=== PATIENT | female | born 2000 | race Caucasian/White ===

== ENCOUNTER 2018-11-16 22:44 | Observation (INO) | payer BC ==
[2018-11-16] MEDS ORDERED: IPRATROPIUM 0.5 MG/2.5 ML NEBU INHALATION STA (22:57)
[2018-11-16] MEDS ORDERED: ALBUTEROL NEBULIZED 2.5 MG/3 ML INHALATION STA (22:57)
--- NOTE | 2018-11-16 22:58 | ED ---
SOB HPI - General Chief Complaint: Shortness of Breath Stated Complaint: SOB Time Seen by Provider: 11/16/18 22:56 Source: patient, RN notes reviewed, old records reviewed Mode of arrival: ambulatory Limitations: no limitations - History of Present Illness Initial Comments: This is a 18-year-old female to the ER for evaluation shortness a for evaluation shortness of breath. His physician patient is been struggling with for a few months now. No liver medications. Patient was seen by family doctor earlier in the day and symptoms have persisted tonight and progressively worsening with no help with breathing treatments. Patient was given steroids shot prior in the day as well as chest x-ray which from what shewas normal. Patient denies fevers. Denies pain. Denies chance of . Denies any anxiety. No other medications, patient denies drugs or alcohol MD Complaint: shortness of breath, cough, anxiety -: hour(s) Severity: moderate Severity scale (1-10): 6 Consistency: constant, intermittent Improves With: bronchodilators Worsens With: exertion, movement Context: recent URI Associated Symptoms: cough, sputum production, palpitations Treatments Prior to Arrival: none - Related Data Home Medications Medication Instructions Recorded Confirmed Albuterol Nebulized [Ventolin 2.5 mg INHALATION RT-QID PRN 11/16/18 11/16/18 Nebulized] Albuterol Sulfate [Proair Hfa] 1 - 2 puff INHALATION RT-QID PRN 11/16/18 Desog-E.estradiol/E.estradiol 1 tab PO DAILY 11/16/18 11/16/18 [Azurette 28 Day Tablet] Doxycycline Hyclate [Vibramycin] 100 mg PO BID 11/16/18 11/16/18 predniSONE See Taper PO DAILY 11/16/18 11/16/18 Allergies Allergy/AdvReac Type Severity Reaction Status Date / Time azithromycin [From Zithromax] Allergy Rash/Hives Verified 11/16/18 23:08 Review of Systems ROS Statement: Those systems with pertinent positive or pertinent negative responses have been documented in the HPI. ROS Other: All systems not noted in ROS Statement are negative. Past Medical History Past Medical History: No Reported History History of Any Multi-Drug Resistant Organisms: None Reported Past Surgical History: No Surgical Hx Reported Past Psychological History: No Psychological Hx Reported Smoking Status: Never smoker Past Alcohol Use History: Occasional Past Drug Use History: None Reported General Exam Limitations: no limitations General appearance: alert, in no apparent distress Head exam: Present: atraumatic, normocephalic, normal inspection Eye exam: Present: normal appearance, PERRL, EOMI. Absent: scleral icterus, conjunctival injection, periorbital swelling ENT exam: Present: normal exam, mucous membranes moist Neck exam: Present: normal inspection. Absent: tenderness, meningismus, lymphadenopathy Respiratory exam: Present: respiratory distress, decreased breath sounds, prolonged expiratory. Absent: wheezes, rales, rhonchi, stridor Cardiovascular Exam: Present: normal rhythm, tachycardia, normal heart sounds. Absent: systolic murmur, diastolic murmur, rubs, gallop, clicks GI/Abdominal exam: Present: soft, normal bowel sounds. Absent: distended, tenderness, guarding, rebound, rigid Extremities exam: Present: normal inspection, full ROM, normal capillary refill. Absent: tenderness, pedal edema, joint swelling, calf tenderness Back exam: Present: normal inspection Neurological exam: Present: alert, oriented X3, CN II-XII intact Psychiatric exam: Present: normal affect, normal mood Skin exam: Present: warm, dry, intact, normal color. Absent: rash Course Vital Signs 11/16/18 11/16/18 11/16/18 22:51 23:13 23:39 Temperature 99.3 F Pulse Rate 136 H 97 100 Respiratory 28 H 22 20 Rate Blood Pressure 133/88 O2 Sat by Pulse 96 Oximetry 11/17/18 11/17/18 11/17/18 00:00 01:00 01:30 Temperature Pulse Rate 147 H 126 H 135 H Respiratory 23 22 20 Rate Blood Pressure 140/87 134/78 117/88 O2 Sat by Pulse 96 99 98 Oximetry - Reevaluation(s) Reevaluation #1: Record is reviewed and noncontributory Reevaluation #2: Patient is continues to complain of chest pain shortness of breath and feels like her heart is racing and palpating in her chest. Reevaluation #3: Spoke with patient regarding normal findings, patient does not for comfortable at home as he symptoms of progressive for 3 months and she is going back to school this week and, would like to have answers to her symptoms Medical Decision Making - Medical Decision Making 18-year-old female the ER for evaluation of chest pain chest pain with cough shortness of breath, symptoms progressive 3 months. She has had waxing and waning of symptoms but recently worsening. She was seen in urgent care earlier today and symptoms progressively worsened felt the night. No help at home was in home inhalers. Patient given breathing treatment here in the ER and has remained persistently tachycardic here in the emergency room. Patient did have a CT which was negative labwork which is within normal limits. Patient will be admitted for persistent tachycardia shortness of breath and chest pain. - Lab Data Result diagrams: 11/17/18 00:00 11/17/18 00:00 Lab Results 11/17/18 11/17/18 11/17/18 Range/Units 00:00 00:00 00:00 WBC 11.4 H (4.0-11.0) k/uL RBC 4.41 (3.80-5.40) m/uL Hgb 12.5 (11.4-16.0) gm/dL Hct 39.0 (34.0-46.0) % MCV 88.4 (80.0-100.0) fL MCH 28.3 (25.0-35.0) pg MCHC 32.1 (31.0-37.0) g/dL RDW 14.1 (11.5-15.5) % Plt Count 170 (150-450) k/uL Neutrophils % 72 % Lymphocytes % 16 % Monocytes % 4 % Eosinophils % 6 % Basophils % 1 % Neutrophils # 8.2 H (1.3-7.7) k/uL Lymphocytes # 1.8 (1.0-4.8) k/uL Monocytes # 0.5 (0-1.0) k/uL Eosinophils # 0.7 (0-0.7) k/uL Basophils # 0.1 (0-0.2) k/uL PT (9.0-12.0) sec INR (<1.2) APTT (22.0-30.0) sec D-Dimer (<0.60) mg/L FEU Sodium 137 (137-145) mmol/L Potassium 3.5 (3.5-5.1) mmol/L Chloride 104 (98-107) mmol/L Carbon Dioxide 23 (22-30) mmol/L Anion Gap 10 mmol/L BUN 9 (7-17) mg/dL Creatinine 0.83 (0.52-1.04) mg/dL Est GFR (CKD-EPI)AfAm >90 (>60 ml/min/1.73 sqM) Est GFR (CKD-EPI)NonAf >90 (>60 ml/min/1.73 sqM) Glucose 133 H (74-99) mg/dL Calcium 10.1 (8.4-10.2) mg/dL Magnesium 1.6 (1.6-2.3) mg/dL Total Bilirubin 0.4 (0.2-1.3) mg/dL AST 19 (14-36) U/L ALT 23 (9-52) U/L Alkaline Phosphatase 60 (38-126) U/L Total Creatine Kinase 119 (30-135) U/L CK-MB (CK-2) 0.4 (0.0-2.4) ng/mL CK-MB (CK-2) Rel Index 0.3 Troponin I <0.012 (0.000-0.034) ng/mL NT-Pro-B Natriuret Pep pg/mL Total Protein 7.4 (6.3-8.2) g/dL Albumin 4.3 (3.5-5.0) g/dL TSH (0.465-4.680) mIU/L 11/17/18 11/17/18 11/17/18 Range/Units 00:00 00:00 00:00 WBC (4.0-11.0) k/uL RBC (3.80-5.40) m/uL Hgb (11.4-16.0) gm/dL Hct (34.0-46.0) % MCV (80.0-100.0) fL MCH (25.0-35.0) pg MCHC (31.0-37.0) g/dL RDW (11.5-15.5) % Plt Count (150-450) k/uL Neutrophils % % Lymphocytes % % Monocytes % % Eosinophils % % Basophils % % Neutrophils # (1.3-7.7) k/uL Lymphocytes # (1.0-4.8) k/uL Monocytes # (0-1.0) k/uL Eosinophils # (0-0.7) k/uL Basophils # (0-0.2) k/uL PT 9.6 (9.0-12.0) sec INR 0.9 (<1.2) APTT 24.9 (22.0-30.0) sec D-Dimer 0.61 H (<0.60) mg/L FEU Sodium (137-145) mmol/L Potassium (3.5-5.1) mmol/L Chloride (98-107) mmol/L Carbon Dioxide (22-30) mmol/L Anion Gap mmol/L BUN (7-17) mg/dL Creatinine (0.52-1.04) mg/dL Est GFR (CKD-EPI)AfAm (>60 ml/min/1.73 sqM) Est GFR (CKD-EPI)NonAf (>60 ml/min/1.73 sqM) Glucose (74-99) mg/dL Calcium (8.4-10.2) mg/dL Magnesium (1.6-2.3) mg/dL Total Bilirubin (0.2-1.3) mg/dL AST (14-36) U/L ALT (9-52) U/L Alkaline Phosphatase (38-126) U/L Total Creatine Kinase (30-135) U/L CK-MB (CK-2) (0.0-2.4) ng/mL CK-MB (CK-2) Rel Index Troponin I (0.000-0.034) ng/mL NT-Pro-B Natriuret Pep 84 pg/mL Total Protein (6.3-8.2) g/dL Albumin (3.5-5.0) g/dL TSH 2.710 (0.465-4.680) mIU/L - EKG Data -: EKG Interpreted by Me (EKG shows sinus tachycardia rate 140, CA 120, QRS 90, QTc 518) - Radiology Data Radiology results: report reviewed (CTA chest is negative for acute disease), image reviewed Disposition Clinical Impression: Tachycardia, Acute bronchitis Disposition: ADMITTED IP TO THIS HOSP Condition: Fair Is patient prescribed a controlled substance at d/c from ED?: No
[2018-11-16] MEDS ORDERED: SODIUM CHLORIDE 0.9% 1,000 ML IV STA ×2 (23:22)
[2018-11-16] MEDS ORDERED: SODIUM CHLORIDE 0.9% 500 ML 500 ML IV STA (23:22)
[2018-11-17 00:07] LABS: Basophils # (A) 0.1 k/uL (0-0.2); Basophils % (A) 1 %; Eosinophils # (A) 0.7 k/uL (0-0.7); Eosinophils % (A) 6 %; HGB 12.5 gm/dL (11.4-16.0); Lymphocytes # (A) 1.8 k/uL (1.0-4.8); Lymphocytes % (A) 16 %; MCH 28.3 pg (25.0-35.0); MCHC 32.1 g/dL (31.0-37.0); MCV 88.4 fL (80.0-100.0); Monocytes # (A) 0.5 k/uL (0-1.0); Monocytes % (A) 4 %; Neutrophils # (A) 8.2 k/uL (1.3-7.7); Neutrophils % (A) 72 %; Platelet Count 170 k/uL (150-450); RBC 4.41 m/uL (3.80-5.40); RDW 14.1 % (11.5-15.5); WBC 11.4 k/uL (4.0-11.0)
[2018-11-17 00:17] LABS: ALT 23 U/L (9-52); AST 19 U/L (14-36); Albumin 4.3 g/dL (3.5-5.0); Alkaline Phosphatase 60 U/L (38-126); Anion Gap 10 mmol/L; Blood Urea Nitrogen 9 mg/dL (7-17); Calcium 10.1 mg/dL (8.4-10.2); Carbon Dioxide 23 mmol/L (22-30); Chloride 104 mmol/L (98-107); Glucose 133 mg/dL (74-99); Magnesium 1.6 mg/dL (1.6-2.3); Potassium 3.5 mmol/L (3.5-5.1); Sodium 137 mmol/L (137-145); Total Bilirubin 0.4 mg/dL (0.2-1.3); Total Protein 7.4 g/dL (6.3-8.2)
[2018-11-17 00:28] LABS: Creatine Kinase 119 U/L (30-135)
[2018-11-17] MEDS ORDERED: SODIUM CHLORIDE 0.9% 500 ML 500 ML IV STA (00:36)
[2018-11-17 00:41] LABS: Creatine Kinase MB 0.4 ng/mL (0.0-2.4); INR 0.9 (<1.2); Partial Thromboplastin Time 24.9 sec (22.0-30.0); Prothrombin Time 9.6 sec (9.0-12.0); Troponin I <0.012 ng/mL (0.000-0.034)
[2018-11-17 00:48] LABS: D-Dimer 0.61 mg/L FEU (<0.60)
--- NOTE | 2018-11-17 00:58 | CT ---
EXAMINATION TYPE: CT angio chest DATE OF EXAM: 11/17/2018 12:37 AM COMPARISON: None HISTORY: R/O PE, cough, congestion CT DLP: 217.80 mGycm Automated exposure control for dose reduction was used. CONTRAST: CTA scan of the thorax is performed with IV Contrast, patient injected with 60 mL of Isovue 370, pulm onary embolism protocol. . FINDINGS: There are 3-D post processed images. The lungs are clear of infiltrate. There is no pleural effusion. Heart size is normal. There is no pe ricardial effusion. There is no mediastinal adenopathy. There is a 1.5 cm right bronchial lymph node. There is normal contrast opacification of the pulmonary arteries. There are no filling defects. There is normal contrast opacification of the thoracic aorta. There is no evidence of aneurysm or dissecti on. Bony thorax appears intact. IMPRESSION: NO EVIDENCE OF PULMONARY EMBOLISM. SINGLE ENLARGED RIGHT BRONCHIAL LYMPH NODE.
[2018-11-17 02:14] VITALS: BMI 22.6
[2018-11-17] MEDS ORDERED: guaiFENesin SYRUP 100MG/5ML 200 MG/10 ML CUP PO PRN (02:21)
[2018-11-17] MEDS ORDERED: MONTELUKAST 10 MG TAB PO STA (02:21)
[2018-11-17] MEDS ORDERED: IPRATROPIUM 0.5 MG/2.5 ML NEBU INHALATION PRN (02:33)
--- NOTE | 2018-11-17 02:36 | P.HPIM ---
History of Present Illness H&P Date: 11/17/18 The patient is a 18 yo F with a PMH of recently diagnosed asthma (started on Albuerol inhaler 1 month ago) presented to the ED for persistent non-productive cough, wheezing, and pleuritic chest pain of 3 months duration. The patient notes that her symptoms were initially mild and then gradually progressed. For the past 1 month, she noted nightly awakenings requiring albuterol use along with 2-3x/daily uses. She was following with her PCP who had given her a steroid taper 2 weeks ago which provided significant relief for a few days with subsequent relapse of her symptoms. She notes that the chest pain is brought on with coughing or with movements involving her chest. She denied any fever, chills, palpitations, recent travel, sick contacts, LE swelling, hemoptysis, abnormal rashes, nausea, vomiting, abdominal pain, diarrhea, or constipation. The patient has had a dog at home for past 5 years and the house has multiple carpets. There is no family history of asthma. The patient is a never-smoker and is a full-time college student. In the ED, the patient underwent a comprehensive workup. WBC was 11.4 with 6% eosinophils. D-dimer was 0.61, Troponin < 0.012, BNP 84, and TSH 2.710. Chest CTA revealed a single enlarged LN but no evidence of PE. The patient was noted to be tachycardic with EKG showing sinus tachycardia at 148 bpm. Review of Systems Pertinent positives and negatives as discussed in HPI, a complete review of systems was performed and all other systems are negative. Past Medical History Past Medical History: No Reported History History of Any Multi-Drug Resistant Organisms: None Reported Past Surgical History: No Surgical Hx Reported Past Psychological History: No Psychological Hx Reported Smoking Status: Never smoker Past Alcohol Use History: Occasional Past Drug Use History: None Reported Medications and Allergies Home Medications Medication Instructions Recorded Confirmed Type Albuterol Nebulized [Ventolin 2.5 mg INHALATION RT-QID PRN 11/16/18 11/16/18 History Nebulized] Albuterol Sulfate [Proair Hfa] 1 - 2 puff INHALATION RT-QID PRN 11/16/18 History Desog-E.estradiol/E.estradiol 1 tab PO DAILY 11/16/18 11/16/18 History [Azurette 28 Day Tablet] Doxycycline Hyclate [Vibramycin] 100 mg PO BID 11/16/18 11/16/18 History predniSONE See Taper PO DAILY 11/16/18 11/16/18 History Allergies Allergy/AdvReac Type Severity Reaction Status Date / Time azithromycin [From Zithromax] Allergy Rash/Hives Verified 11/16/18 23:08 Physical Exam Vitals: Vital Signs Temp Pulse Pulse Resp BP BP Pulse Ox 11/17/18 02:05 100.4 F H 131 H 16 134/75 100 11/17/18 01:30 135 H 20 117/88 98 11/17/18 01:00 126 H 22 134/78 99 11/17/18 00:00 147 H 23 140/87 96 11/16/18 23:39 100 20 11/16/18 23:13 97 22 11/16/18 22:51 99.3 F 136 H 28 H 133/88 96 Intake and Output 11/16/18 11/16/18 11/17/18 14:59 22:59 06:59 Other: Weight 68.039 kg General: [non toxic], [no distress], [appears at stated age], [normal weight] Derm: [no unusual rashes/lesions] [no unusual ecchymoses], [warm], [dry] Head: [atraumatic], [normocephalic], [symmetric] Eyes: [EOMI], [no lid lag], [anicteric sclera], [pupils equal round reactive to light] ENT: [Nose and ears atraumatic], [no thrush], [no pharyngeal erythema] Neck: [No thyromegaly], [no cervical lymphadenopathy], [trachea midline], [ supple] Mouth: [no lip lesion], [mucus membranes moist] Cardiovascular: [S1S2 reg], tachycardic, [no murmur], [positive posterior tibial pulse bilateral], [no edema], [capillary refill less than 2 seconds] Lungs: [Poor air entry with mild wheezing diffusely], [no rhonchi, no rales] , [ no accessory muscle use] Abdominal: [soft], [ nontender to palpation], [no guarding], [no appreciable organomegaly], [normal bowel sounds] Ext: [no gross muscle atrophy], [muscle strength 5 out of 5 in all 4 extremities grossly], [no contractures], Neuro: [ CN II-XI grossly intact], [light touch intact all 4 extremities], [ finger to nose within normal limits], Psych: [Alert], [oriented], [appropriate affect] Results CBC & Chem 7: 11/17/18 00:00 11/17/18 00:00 Labs: Abnormal Lab Results - Last 24 Hours (Table) 11/17/18 11/17/18 11/17/18 Range/Units 00:00 00:00 00:00 WBC 11.4 H (4.0-11.0) k/uL Neutrophils # 8.2 H (1.3-7.7) k/uL D-Dimer 0.61 H (<0.60) mg/L FEU Glucose 133 H (74-99) mg/dL Assessment and Plan Plan: Acute asthma exacerbation, cough-variant -Will start patient on Solu-medrol with Ipratropium. Pharmacy doesn't carry Xopenex (Discussed with pharmacist) -Start Singulair -Will give dose of Magnesium Sulfate -Robitussin -Pulmonary consult -Daily peak flows -Supplemental oxygen -Chest pain likely due to excessive coughing Tachycardia -Likely secondary to repeated use of Albuterol -Will administer ipratropium for now -Telemetry monitoring Enlarged R bronchial LN -Will need repeat CT as outpatient to confirm resolution. Likely reactive. DVT//GI prophylaxis - Lovenox - Protonix The patient is admitted with an anticipated stay less than 2 midnight stay for evaluation of acute asthma exacerbation Surrogate decision-maker: Mother CODE STATUS:Full-code Discussed with: Patient, mother Anticipated discharge date: 11/19/[address]: Home A total of 60 minutes was spent on the care of this complex patient more than 50 % of the time was spent in counseling and care coordination.
[2018-11-17] MEDS: methylPREDNISolone SOD SUCCI 125 MG/2 ML VIAL IV SCH ×2 (02:47→06:31)
[2018-11-17] MEDS: MAGNESIUM SULFATE-D5W PMX 1 GM in DEXTROSE/WATER 1 100ML.BAG IVPB SCH ×2 (03:08→04:44)
[2018-11-17 04:00] LABS: ABG Base Excess -0.9 mmol/L; ABG HCO3 23 mmol/L (21-25); ABG PCO2 34 mmHg (35-45); ABG PH 7.43 (7.35-7.45); ABG PO2 98 mmHg (83-108); ABG TCO2 24 mmol/L (19-24)
[2018-11-17 07:59] LABS: Creatine Kinase 121 U/L (30-135)
[2018-11-17 08:13] LABS: Creatine Kinase MB 0.4 ng/mL (0.0-2.4); Troponin I <0.012 ng/mL (0.000-0.034)
[2018-11-17] MEDS: ENOXAPARIN 40 MG/0.4 ML SYRINGE SQ SCH (11:16)
[2018-11-17] MEDS: VERAPAMIL 40 MG TAB PO SCH ×3 (11:16→20:16)
[2018-11-17] MEDS: PANTOPRAZOLE 40 MG TABLET PO SCH (11:17)
--- NOTE | 2018-11-17 11:18 | P.CNPUL ---
History of Present Illness Consult date: 11/17/18 Requesting physician: Zaheer White Reason for consult: asthma Chief complaint: Shortness of breath cough and wheezing History of present illness: This is a 18-year-old female presented to the ER yesterday with 3 month history of shortness of breath, cough, wheezing, found her primary care physician at one point, and she was placed on albuterol, she was also placed on a course of the Medrol Dosepak. Her symptoms have dramatically improved at the time she was given this treatment. However recently the patient has been getting more symptoms of cough wheezing shortness of breath chest tightness, and her symptoms had been getting progressively worse. Patient never had asthma as a child, no family history of bronchial asthma. She denies any significant exposure recently. She always had a Pet/dog for the last 5 years, and she never demonstrated any ALLERGY to dogs in the past. No recent change in soap, or perfume, or carpeting denies being under stress. Considering the worsening symptoms, patient was seen in the ER, treated with albuterol Atrovent, Solu- Medrol, Singulair, and apparently while in the ER she developed sinus tachycardia, cardiology was consulted, and she was placed on Isoptin. Presently during my evaluation, seems to be doing better, breathing easier. CT angiogram of the chest showed no evidence of pulmonary embolism, however it did show a 1.5 cm bronchial lymph node felt to be reactive unless proven otherwise. Patient denies any symptoms of GERD. Denies any symptoms of postnasal drip, she does have occasional symptoms of ALLERGIC rhinitis especially in the last 3 months. Review of Systems 14 point review of systems were obtained, please refer to pertinent positives in HPI, otherwise remaining systems are negative. Past Medical History Past Medical History: No Reported History History of Any Multi-Drug Resistant Organisms: None Reported Past Surgical History: No Surgical Hx Reported Past Anesthesia/Blood Transfusion Reactions: No Reported Reaction Past Psychological History: No Psychological Hx Reported Smoking Status: Never smoker Past Alcohol Use History: Occasional Past Drug Use History: None Reported Medications and Allergies Home Medications Medication Instructions Recorded Confirmed Type Albuterol Nebulized [Ventolin 2.5 mg INHALATION RT-QID PRN 11/16/18 11/16/18 History Nebulized] Albuterol Sulfate [Proair Hfa] 1 - 2 puff INHALATION RT-QID PRN 11/16/18 History Desog-E.estradiol/E.estradiol 1 tab PO DAILY 11/16/18 11/16/18 History [Azurette 28 Day Tablet] Doxycycline Hyclate [Vibramycin] 100 mg PO BID 11/16/18 11/16/18 History predniSONE See Taper PO DAILY 11/16/18 11/16/18 History Allergies Allergy/AdvReac Type Severity Reaction Status Date / Time azithromycin [From Zithromax] Allergy Rash/Hives Verified 11/16/18 23:08 Physical Exam Vitals: Vital Signs Temp Pulse Pulse Pulse Resp BP BP 11/17/18 09:23 104 H 11/17/18 09:11 100 11/17/18 07:25 98.1 F 95 16 109/69 11/17/18 02:57 135 H 20 11/17/18 02:41 122/77 11/17/18 02:05 100.4 F H 131 H 18 134/75 11/17/18 01:30 135 H 20 117/88 11/17/18 01:00 126 H 22 134/78 11/17/18 00:00 147 H 23 140/87 11/16/18 23:39 100 20 11/16/18 23:13 97 22 11/16/18 22:51 99.3 F 136 H 28 H 133/88 Pulse Ox 11/17/18 09:23 11/17/18 09:11 11/17/18 07:25 98 11/17/18 02:57 11/17/18 02:41 11/17/18 02:05 100 11/17/18 01:30 98 11/17/18 01:00 99 11/17/18 00:00 96 11/16/18 23:39 11/16/18 23:13 11/16/18 22:51 96 Intake and Output 11/16/18 11/17/18 11/17/18 22:59 06:59 14:59 Other: Weight 68.039 kg 69.5 kg Physical Exam: Revealed a 18-year-old female, in no distress. Head: Atraumatic, normocephalic. HEENT:[Neck is supple.] [No neck masses.] [No thyromegaly.] [No JVD.] Chest: Diminished breath sound bilaterally., no crackles, minimal wheezing on forced expiratory maneuver only. Cardiac Exam: [Normal S1 and S2, no S3 gallop, no murmur.] Abdomen: [Soft, nontender, no megaly, no rebound, no guarding, normal bowel sounds.] Extremities: [No clubbing, no edema, no cyanosis.] Neurological Exam: [No focal neurologic deficit. Psychiatric: Normal mood, affect and mental status examination. Skin: No rashes.] Results - Laboratory Findings CBC and BMP: 11/17/18 00:00 11/17/18 00:00 ABG ABG pH 7.43 (7.35-7.45) 11/17/18 03:45 ABG pCO2 34 mmHg (35-45) L 11/17/18 03:45 ABG pO2 98 mmHg (83-108) 11/17/18 03:45 ABG O2 Saturation 98.0 % (94-97) H 11/17/18 03:45 PT/INR, D-dimer PT 9.6 sec (9.0-12.0) 11/17/18 00:00 INR 0.9 (<1.2) 11/17/18 00:00 D-Dimer 0.61 mg/L FEU (<0.60) H 11/17/18 00:00 Abnormal lab findings: Abnormal Labs 11/17/18 11/17/18 11/17/18 00:00 00:00 00:00 WBC 11.4 H Neutrophils # 8.2 H D-Dimer 0.61 H ABG pCO2 ABG O2 Saturation Glucose 133 H 11/17/18 03:45 WBC Neutrophils # D-Dimer ABG pCO2 34 L ABG O2 Saturation 98.0 H Glucose - Diagnostic Findings CT scan - chest: image reviewed (As noted in HPI.) Assessment and Plan Assessment: Impression: Acute exacerbation of mild persistent asthma Acute tracheobronchitis Sinus tachycardia mostly induced by medication and anxiety. No evidence of thromboembolic disease on CT angiogram of the chest. Ideally speaking would be best to use Xopenex, however is not available on our formulary. This is something to be used possibly upon discharge. This is being addressed by cardiology, apparently Isoptin was initiated Reactive lymph node as noted on CT of the chest, would recommend repeat CT of the chest in 6 months. Recommendation: Fully agree with the present treatment plan, will recommend placing the patient back on albuterol HFA 2 puffs 4 times a day when necessary, Singulair, Solu-Medrol and transitioned that tomorrow to prednisone 30 mg and tapered over 2 weeks. Consider giving the patient a prescription for Xopenex upon discharge tomorrow. Would add Pulmicort updrafts twice a day. We'll continue to follow. Consider discharge planning in the next 24 hours. Patient should have follow-up with me in my office in one week post discharge. Time with Patient: Greater than 30
--- NOTE | 2018-11-17 11:41 | P.CRDCN ---
History of Present Illness History of present illness: This is a pleasant 18-year-old female past medical history significant for asthma, which was newly diagnosed over the last 3 months. She denies history of coronary artery disease, hypertension, dyslipidemia or diabetes mellitus. Mother and aunt are in the room as well. She states she has been feeling short of breath and coughing for the previous 3 months. She has been started on albuterol at home. Over the last few days her symptoms have become increasingly bothersome with no improvement from breathing treatments. She also describes a pain in her chest worse with cough, deep breathing and movement of her torso. EKG reveals sinus tachycardia heart rate 148 on admission, right bundle branch block pattern right axis deviation. There is no old EKG for comparison. Telemetry tracings reveal sinus tachycardia with no acute arrhythmia. CT angio chest negative for PE with a single enlarged her bronchial lymph node noted. Laboratory data reviewed, WBC 11.4, hemoglobin 12.5, platelets 170, d-dimer 0.61 , sodium 137, potassium 3.5, creatinine 0.83, magnesium 1.6, cardiac enzymes negative 2, NT proBNP 84, TSH 2.71. She takes no daily cardiac medications No old cardiac diagnostic testing to review. At the time of my exam: CONSTITUTIONAL: Denies fever. Denies chills. EYES: Denies blurred vision. Denies vision changes. Denies eye pain. EARS, NOSE, MOUTH & THROAT: Denies headache. Denies sore throat. Denies ear pain. CARDIOVASCULAR: Denies chest pain. Complains of shortness of breath. Denies orthopnea. Denies PND. Denies palpitations. RESPIRATORY: Complains of cough. GASTROINTESTINAL: Denies abdominal pain. Denies diarrhea. Denies constipation. Denies nausea. Denies vomiting. MUSCULOSKELETAL: Denies myalgias. INTEGUMENTARY: Denies pruitis. Denies rash. NEUROLOGIC: Denies numbness. Denies tingling. Denies weakness. PSYCHIATRIC: Denies anxiety. Denies depression. ENDOCRINE: Denies fatigue. Denies weight change. Denies polydipsia. Denies polyurina. GENITOURINARY: Denies burning, hematuria or urgency with micturation. HEMATOLOGIC: Denies history of anemia. Denies bleeding. Blood pressure 109/69 heart rate 104 afebrile maintaining oxygen saturation on nasal cannula GENERAL: This is a 18-year-old female in no apparent distress at the time of my examination. HEENT: Head is atraumatic, normocephalic. Pupils are equal, round. Sclerae anicteric. Conjunctivae are clear. Mucous membranes of the mouth are moist. Neck is supple. There is no jugular venous distention. No carotid bruit is heard. LUNGS: Expiratory wheeze throughout, no rales or rhonchi. No chest wall tenderness is noted on palpation or with deep breathing. HEART: Regular rate and rhythm without murmurs, rubs or gallops. S1 and S2 heard. ABDOMEN: Soft, nontender. Bowel sounds are heard. No organomegaly noted. EXTREMITIES: No evidence of peripheral edema and no calf tenderness noted. VASCULAR: Radial and dorsalis pedis pulses palpated, no evidence of clubbing. NEUROLOGIC: Patient is awake, alert and oriented x3. ASSESSMENT Sinus tachycardia Acute exacerbation of asthma Pleuritic chest pain. PLAN Obtain 2-D echocardiogram and Doppler study to assess cardiac structure and function. Start the patient on verapamil 40 mg 3 times a day for heart rate control. Ongoing medical management of asthma. Thank you kindly for this consultation. Nurse Practitioner note has been reviewed, I agree with a documented findings and plan of care. Patient was seen and examined. Past Medical History Past Medical History: No Reported History History of Any Multi-Drug Resistant Organisms: None Reported Past Surgical History: No Surgical Hx Reported Past Anesthesia/Blood Transfusion Reactions: No Reported Reaction Past Psychological History: No Psychological Hx Reported Smoking Status: Never smoker Past Alcohol Use History: Occasional Past Drug Use History: None Reported Medications and Allergies Home Medications Medication Instructions Recorded Confirmed Type Albuterol Nebulized [Ventolin 2.5 mg INHALATION RT-QID PRN 11/16/18 11/16/18 History Nebulized] Albuterol Sulfate [Proair Hfa] 1 - 2 puff INHALATION RT-QID PRN 11/16/18 History Desog-E.estradiol/E.estradiol 1 tab PO DAILY 11/16/18 11/16/18 History [Azurette 28 Day Tablet] Doxycycline Hyclate [Vibramycin] 100 mg PO BID 11/16/18 11/16/18 History predniSONE See Taper PO DAILY 11/16/18 11/16/18 History Allergies Allergy/AdvReac Type Severity Reaction Status Date / Time azithromycin [From Zithromax] Allergy Rash/Hives Verified 11/16/18 23:08 Physical Exam Vitals: Vital Signs Temp Pulse Pulse Pulse Resp BP BP 11/17/18 09:23 104 H 11/17/18 09:11 100 11/17/18 07:25 98.1 F 95 16 109/69 11/17/18 02:57 135 H 20 11/17/18 02:41 122/77 11/17/18 02:05 100.4 F H 131 H 18 134/75 11/17/18 01:30 135 H 20 117/88 11/17/18 01:00 126 H 22 134/78 11/17/18 00:00 147 H 23 140/87 11/16/18 23:39 100 20 11/16/18 23:13 97 22 11/16/18 22:51 99.3 F 136 H 28 H 133/88 Pulse Ox 11/17/18 09:23 11/17/18 09:11 11/17/18 07:25 98 11/17/18 02:57 11/17/18 02:41 11/17/18 02:05 100 11/17/18 01:30 98 11/17/18 01:00 99 11/17/18 00:00 96 11/16/18 23:39 11/16/18 23:13 11/16/18 22:51 96 Intake and Output 11/16/18 11/17/18 11/17/18 22:59 06:59 14:59 Other: Weight 68.039 kg 69.5 kg Results 11/17/18 00:00 11/17/18 00:00 Cardiac Enzymes 11/17/18 11/17/18 11/17/18 Range/Units 00:00 00:00 06:59 AST 19 (14-36) U/L CK-MB (CK-2) 0.4 0.4 (0.0-2.4) ng/mL Troponin I <0.012 <0.012 (0.000-0.034) ng/mL Coagulation 11/17/18 Range/Units 00:00 PT 9.6 (9.0-12.0) sec APTT 24.9 (22.0-30.0) sec CBC 11/17/18 Range/Units 00:00 WBC 11.4 H (4.0-11.0) k/uL RBC 4.41 (3.80-5.40) m/uL Hgb 12.5 (11.4-16.0) gm/dL Hct 39.0 (34.0-46.0) % Plt Count 170 (150-450) k/uL Comprehensive Metabolic Panel 11/17/18 Range/Units 00:00 Sodium 137 (137-145) mmol/L Potassium 3.5 (3.5-5.1) mmol/L Chloride 104 (98-107) mmol/L Carbon Dioxide 23 (22-30) mmol/L BUN 9 (7-17) mg/dL Creatinine 0.83 (0.52-1.04) mg/dL Glucose 133 H (74-99) mg/dL Calcium 10.1 (8.4-10.2) mg/dL AST 19 (14-36) U/L ALT 23 (9-52) U/L Alkaline Phosphatase 60 (38-126) U/L Total Protein 7.4 (6.3-8.2) g/dL Albumin 4.3 (3.5-5.0) g/dL Current Medications Generic Name Dose Route Start Last Admin Trade Name Freq PRN Reason Stop Dose Admin Albuterol Sulfate 2.5 mg 11/17/18 10:45 Ventolin Nebulized INHALATION RT-QID PRN Shortness Of Breath Or Wheezing Aspirin 325 mg 11/18/18 09:00 Aspirin PO DAILY [facility] Enoxaparin Sodium 40 mg 11/17/18 09:00 Lovenox SQ DAILY [facility] Guaifenesin 200 mg 11/17/18 02:21 Robitussin PO Q6H PRN Cough Methylprednisolone Sodium Succinate 40 mg 11/17/18 16:00 Solu-Medrol IV Q8HR IVET Montelukast Sodium 10 mg 11/17/18 21:00 Singulair PO HS IVET Pantoprazole Sodium 40 mg 11/17/18 07:30 Protonix PO AC-BRKFST [facility] Verapamil HCl 40 mg 11/17/18 10:15 Isoptin PO TID IVET Intake and Output 11/16/18 11/17/18 11/17/18 22:59 06:59 14:59 Other: Weight 68.039 kg 69.5 kg 11/17/18 00:00 11/17/18 00:00
[2018-11-17 11:44] LABS: Creatine Kinase 134 U/L (30-135)
[2018-11-17 11:57] LABS: Creatine Kinase MB 0.5 ng/mL (0.0-2.4); Troponin I <0.012 ng/mL (0.000-0.034)
--- NOTE | 2018-11-17 11:57 | ECHOF ---
Referral Reason:cp MEASUREMENTS -------- HEIGHT: 175.3 cm WEIGHT: 69.4 kg BP: 109/69 RVIDd: 2.2 cm (< 3.3) IVSd: 0.8 cm (0.6 - 1.1) LVIDd: 4.0 cm (3.9 - 5.3) LVPWd: 0.9 cm (0.6 - 1.1) IVSs: 1.4 cm LVIDs: 2.5 cm LVPWs: 1.1 cm LA Diam: 2.4 cm (2.7 - 3.8) LAESV Index (A-L): 18.07 ml/m Ao Diam: 2.9 cm (2.0 - 3.7) AV Cusp: 2.3 cm (1.5 - 2.6) EPSS: 0.4 cm MV E Hernando: 0.81 m/s MV DecT: 118 ms MV A Hernando: 1.01 m/s MV E/A Ratio: 0.81 RAP: 5.00 mmHg RVSP: 22.90 mmHg MV EF SLOPE: 127.33 mm/s (70 - 150) MV EXCURSION: 1.97 cm (> 18.000) FINDINGS -------- Sinus rhythm. This was a technically good study. The left ventricular size is normal. Left ventricular wall thickness is normal. Overall left vent ricular systolic function is normal with, an EF between 60 - 65 %. The right ventricle is normal in size. Normal LA size by volume 22+/-6 ml/m2. The right atrium is normal in size. The aortic valve is trileaflet and appears structurally normal. The mitral valve leaflets are mildly thickened. There is trace mitral regurgitation. MVL looks re dundant Mild tricuspid regurgitation present. Right ventricular systolic pressure is normal at < 35 mmHg. Trace/mild (physiologic) pulmonic regurgitation. The aortic root size is normal. Normal inferior vena cava with normal inspiratory collapse consistent with estimated right atrial pre ssure of 5 mmHg. There is no pericardial effusion. CONCLUSIONS -------- 1. Sinus rhythm. 2. This was a technically good study. 3. The left ventricular size is normal. 4. Left ventricular wall thickness is normal. 5. Overall left ventricular systolic function is normal with, an EF between 60 - 65 %. 6. The right ventricle is normal in size. 7. Normal LA size by volume 22+/-6 ml/m2. 8. The right atrium is normal in size. 9. The aortic valve is trileaflet and appears structurally normal. 10. The mitral valve leaflets are mildly thickened. 11. There is trace mitral regurgitation. 12. MVL looks redundant 13. Mild tricuspid regurgitation present. 14. Right ventricular systolic pressure is normal at < 35 mmHg. 15. Trace/mild (physiologic) pulmonic regurgitation. 16. The aortic root size is normal. 17. Normal inferior vena cava with normal inspiratory collapse consistent with estimated right atrial pressure of 5 mmHg. 18. There is no pericardial effusion. MENTAL HEALTH DIRECTOR: YASH Wheeler
[2018-11-17] MEDS: ALBUTEROL NEBULIZED 2.5 MG/3 ML INHALATION PRN ×2 (16:18→19:44)
[2018-11-17] MEDS: methylPREDNISolone SOD SUCCI 40 MG/ML 1 ML VIAL IV SCH ×2 (16:44→22:53)
--- NOTE | 2018-11-17 18:17 | P.PN ---
Subjective Patient was admitted with shortness of breath wheezing coughing. She denies any URI like symptoms. His any fever chills. Denies any sick contacts. Denies any new pets or any exposures. She has never been diagnosed with asthma and does not have any history of asthma or ALLERGIES in the family. She states that for the last 2-3 months she's been having dry cough and occasionally waking up at night with some shortness of breath. States that mouth breathing treatment and steroids feeling much better. REVIEW OF SYSTEMS: CONSTITUTIONAL: No fever or chills HEENT: No changes in vision or voice CARDIOVASCULAR: no chest pain or abnormal heart beats, or any swelling in ankles or feet. RESPIRATORY: As per HPI GASTROINTESTINAL: No abdominal pain, no nausea no vomiting no constipation or diarrhea GENITOURINARY: no any urinary urgency, frequency or burning, and there has been no blood in her urine. no flank pain. MUSCULOSKELETAL: She notes full range of motion of all her joints without pain or swelling. NEUROLOGICAL: , no headache. no vision changes, or fainting. No numbness or tingling. Objective - Vital Signs Vital signs: Vital Signs Temp 98.6 F 11/17/18 15:42 Pulse 100 11/17/18 16:29 Resp 18 11/17/18 15:42 BP 115/59 11/17/18 15:42 Pulse Ox 97 11/17/18 15:42 Intake & Output 11/16/18 11/17/18 11/17/18 18:59 06:59 18:59 Intake Total 240 Balance 240 Weight 69.5 kg Intake: Oral 240 - Exam Vital Signs: I have reviewed the vital signs. GENERAL: Well-nourished, Well-developed , no apparent distress, cooperative Eyes: PERRL, extraoculry movements intact, clear conjunctiva Head: : Atraumatic external nose and ears, oropharyngeal mucosa is moist without lesions or exudates Neck: Symmetric, trachea midline, No thyromegaly, no masses or neck vain pulsation, no neck rigidity CVS: +S1/S2, No murmurs or gallops. Peripheral pulses 2+ and equal in all extremities. RESP: Unlabored respiratory effort. Expiratory wheezing and rhonchi Abdomen: Bowel sounds present in all 4 quadrants, Soft to palpation, Nontender/ Nondistended, No hepatosplenomegaly, no hernias or masses, no CVA tnderness Musculoskeletal: Extremities w/o deformity, No cyanosis or clubbing, no joint swelling Skin: Warm, Dry. No rashes or lesions Neuro: wrong address clerk II-XII grossly intact, motor strenght 5/5 i upper and lower extremities, no clonus, patellar DTRs 2+ and sympetrical Psych: Awake, Alert, & Oriented (AAO) x3 Appropriate mood and affect - Labs CBC & Chem 7: 11/17/18 00:00 11/17/18 00:00 Labs: Abnormal Lab Results - Last 24 Hours (Table) 11/17/18 11/17/18 11/17/18 Range/Units 00:00 00:00 00:00 WBC 11.4 H (4.0-11.0) k/uL Neutrophils # 8.2 H (1.3-7.7) k/uL D-Dimer 0.61 H (<0.60) mg/L FEU ABG pCO2 (35-45) mmHg ABG O2 Saturation (94-97) % Glucose 133 H (74-99) mg/dL 11/17/18 Range/Units 03:45 WBC (4.0-11.0) k/uL Neutrophils # (1.3-7.7) k/uL D-Dimer (<0.60) mg/L FEU ABG pCO2 34 L (35-45) mmHg ABG O2 Saturation 98.0 H (94-97) % Glucose (74-99) mg/dL Assessment and Plan Assessment: 1. Acute exacerbation of asthma Systemic steroids Nebulizers Pulmonary recommended discharging Pulmicort Recommended lung function test and ALLERGY testing on outpatient basis 2. Inappropriate sinus tachycardia Likely related to asthma Currently much improved Cardiology started verapamil We'll reevaluate in the morning Expected discharge in a.m. if continues current trajectory of improvement
[2018-11-17] MEDS: BUDESONIDE 1 MG/2 ML NEBU INHALATION SCH (19:43)
[2018-11-17 20:02] LABS: Urine Alcohol Negative (Negative); Urine Barbiturate Negative (Negative); Urine Cocaine Negative (Negative); Urine Methadone Negative (Negative); Urine Opiates Negative (Negative); Urine Phencyclidine Negative (Negative)
[2018-11-17] MEDS ORDERED: MONTELUKAST 10 MG TAB PO SCH (21:00)
[2018-11-17 23:26] LABS: Cholesterol 187 mg/dL (<200); HDL Cholesterol 93 mg/dL (40-60); LDL Cholesterol,Calculated 68 mg/dL (0-99); Triglycerides 130 mg/dL (<150)
[2018-11-18 04:32] VITALS: RESP 16
[2018-11-18] MEDS: ALBUTEROL NEBULIZED 2.5 MG/3 ML INHALATION PRN (07:24)
[2018-11-18] MEDS: BUDESONIDE 1 MG/2 ML NEBU INHALATION SCH (07:24)
[2018-11-18 08:19] VITALS: BP 122/62; TEMP 97.7
[2018-11-18] MEDS: VERAPAMIL 40 MG TAB PO SCH (08:20)
[2018-11-18] MEDS: PANTOPRAZOLE 40 MG TABLET PO SCH (08:20)
[2018-11-18] MEDS: ENOXAPARIN 40 MG/0.4 ML SYRINGE SQ SCH (08:20)
[2018-11-18] MEDS: methylPREDNISolone SOD SUCCI 40 MG/ML 1 ML VIAL IV SCH (08:21)
[2018-11-18] MEDS ORDERED: ASPIRIN 325 MG TAB PO SCH (09:00)
--- NOTE | 2018-11-18 09:55 | P.DS ---
Providers Date of admission: 11/17/18 01:10 Attending physician: Zaheer White MD Consults: 11/17/18 01:10 Consult Physician Routine Consulting Provider: Josue Capone Consult Reason/Comments: tachycardia Do you want consulting provider notified?: Yes 11/17/18 02:21 Consult Physician Urgent Consulting Provider: Sobia Cash Consult Reason/Comments: Asthma Do you want consulting provider notified?: Yes Primary care physician: Mary Ann Loza [facility] Course: Date of admission 11/17/2018 Date of discharge is 11/18/2018 Chief complaint: Shortness of breath Admission diagnosis: Shortness of breath and tachycardia Discharge diagnosis: 1. Acute asthma exacerbation 2. Acute bronchitis 3. Sinus tachycardia with Consultants: 1. Pulmonary service 2. Cardiology Procedures none. 1. Echocardiogram: Revealing normal left ejection fraction no diastolic dysfunction and no valvular abnormalities 2. CTA chest: No pulmonary embolism no infiltrates no lymphadenopathy Hospital course this is a 8-year-old female who presented with complaint of cough and shortness of breath and subjective feeling of chest wheezing. She describes cough and nighttime awakening with cough and shortness of breath for last few weeks. Shortness of breath progressed over the few days prior to the admission. She denied any chest pain nausea vomiting leg swelling or orthopnea. Denies fever or chills or URI symptoms. Cough was nonproductive She was found to have expiratory wheezing bilaterally. Chest x-ray was nonacute without infiltrates. She was afebrile without white blood cell count. In emergency department she was initially given breathing treatment and steroids and her condition started improving. But it was noted that she had been having tachycardia in the range of 140 up to 180. EKG showed sinus tachycardia. Patient was admitted for further observation and evaluation. Patient was evaluated by above consultants. She was initially started on steroids and breathing treatments. She was started on verapamil by cardiology. Echocardiogram was unremarkable and CTA chest was unremarkable. With the above-mentioned treatment her condition improved. On date of discharge her heart rate was within normal limits. She was feeling much better without shortness of breath cough improved. Her lungs were clear without any wheezing. She was cleared by cardiology and pulmonary services for discharge and pulmonary service provided prescription for her inhalers. REVIEW OF SYSTEMS: CONSTITUTIONAL: No fever or chills HEENT: No changes in vision or voice CARDIOVASCULAR: no chest pain or abnormal heart beats, or any swelling in ankles or feet. RESPIRATORY: No wheezing or coughing. GASTROINTESTINAL: No abdominal pain, no nausea no vomiting no constipation or diarrhea GENITOURINARY: no any urinary urgency, frequency or burning, and there has been no blood in her urine. no flank pain. MUSCULOSKELETAL: She notes full range of motion of all her joints without pain or swelling. NEUROLOGICAL: , no headache. no vision changes, or fainting. No numbness or tingling. Vital Signs: I have reviewed the vital signs. GENERAL: Well-nourished, Well-developed , no apparent distress, cooperative Eyes: PERRL, extraoculry movements intact, clear conjunctiva Head: : Atraumatic external nose and ears, oropharyngeal mucosa is moist without lesions or exudates Neck: Symmetric, trachea midline, No thyromegaly, no masses or neck vain pulsation, no neck rigidity CVS: +S1/S2, No murmurs or gallops. Peripheral pulses 2+ and equal in all extremities. RESP: Unlabored respiratory effort. Clear to auscultation bilaterally. No wheezing or rhonchi Abdomen: Bowel sounds present in all 4 quadrants, Soft to palpation, Nontender/ Nondistended, No hepatosplenomegaly, no hernias or masses, no CVA tnderness Musculoskeletal: Extremities w/o deformity, No cyanosis or clubbing, no joint swelling Skin: Warm, Dry. No rashes or lesions Disposition: Patient will discharge home. Care was discussed with her mom and the patient. Inhaler techniques explained and we will provide teaching about using spacer patientof discharge. Primary service provided patient with Xopenex: Qvar and Singulair. Given that her heart rate is now normal and stable we will not proceed with verapamil and patient her mother agreeable. Plan is to follow-up with PCP and pulmonary office for further testing with spirometry and ALLERGY testing Patient Condition at Discharge: Good Plan - Discharge Summary Discharge Rx Participant: Yes New Discharge Prescriptions: No Action Doxycycline Hyclate [Vibramycin] 100 mg PO BID predniSONE See Taper PO DAILY Desog-E.estradiol/E.estradiol [Azurette 28 Day Tablet] 1 tab PO DAILY Albuterol Sulfate [Proair Hfa] 1 - 2 puff INHALATION RT-QID PRN PRN Reason: Shortness Of Breath Albuterol Nebulized [Ventolin Nebulized] 2.5 mg INHALATION RT-QID PRN PRN Reason: Shortness Of Breath Discharge Medication List Albuterol Nebulized [Ventolin Nebulized] 2.5 mg INHALATION RT-QID PRN 11/16/18 [ History] Albuterol Sulfate [Proair Hfa] 1 - 2 puff INHALATION RT-QID PRN 11/16/18 [ History] Desog-E.estradiol/E.estradiol [Azurette 28 Day Tablet] 1 tab PO DAILY 11/16/18 [ History] Doxycycline Hyclate [Vibramycin] 100 mg PO BID 11/16/18 [History] predniSONE See Taper PO DAILY 11/16/18 [History] Follow up Appointment(s)/Referral(s): Mary Ann Weiner MD [Primary Care Provider] - 1-2 days Maricel Carrillo MD [STAFF PHYSICIAN] - 1 Week Patient Instructions/Handouts: How to Use a Metered-Dose Inhaler and a Spacer ( GEN), Asthma (GEN) Care Plan Goals (MU): follow up with PCP and pulmonary service Follow-up for spirometry and neurology testing Discharge Disposition: HOME SELF-CARE
--- NOTE | 2018-11-18 10:21 | P.PN ---
Subjective Progress Note Date: 11/18/18 Principal diagnosis: Acute exacerbation of mild persistent asthma This is a 18-year-old female presented to the ER yesterday with 3 month history of shortness of breath, cough, wheezing, found her primary care physician at one point, and she was placed on albuterol, she was also placed on a course of the Medrol Dosepak. Her symptoms have dramatically improved at the time she was given this treatment. However recently the patient has been getting more symptoms of cough wheezing shortness of breath chest tightness, and her symptoms had been getting progressively worse. Patient never had asthma as a child, no family history of bronchial asthma. She denies any significant exposure recently. She always had a Pet/dog for the last 5 years, and she never demonstrated any ALLERGY to dogs in the past. No recent change in soap, or perfume, or carpeting denies being under stress. Considering the worsening symptoms, patient was seen in the ER, treated with albuterol Atrovent, Solu- Medrol, Singulair, and apparently while in the ER she developed sinus tachycardia, cardiology was consulted, and she was placed on Isoptin. Presently during my evaluation, seems to be doing better, breathing easier. CT angiogram of the chest showed no evidence of pulmonary embolism, however it did show a 1.5 cm bronchial lymph node felt to be reactive unless proven otherwise. Patient denies any symptoms of GERD. Denies any symptoms of postnasal drip, she does have occasional symptoms of ALLERGIC rhinitis especially in the last 3 months. Patient was reevaluated today on 11/18/2018, feeling much better, breathing a lot easier. No cough no wheezing no shortness of breath and no sinus tachycardia. Patient remains on the same medications as listed, hence I had a long discussion with her and her mother today, and I feel the patient could be discharged home and should have outpatient follow-up. The discharge medications which I have recommended including Xopenex HFA 2 puffs 4 times a day when necessary, prednisone 30 mg tapered over 16 days, Qvar 82 puffs twice a day, and Singulair 10 mg at bedtime. Patient must see me in the office for follow-up. As far as her cardiac medications are concerned, I would leave it up to the solar hot water installer decide whether she needs to be on Isoptin normal. Objective - Vital Signs Vital signs: Vital Signs Temp 97.7 F 11/18/18 08:00 Pulse 87 11/18/18 08:00 Resp 16 11/18/18 08:00 BP 122/62 11/18/18 08:00 Pulse Ox 95 11/18/18 08:00 Intake & Output 11/17/18 11/18/18 11/18/18 18:59 06:59 18:59 Intake Total 240 Balance 240 Intake: Oral 240 - Exam Physical Exam: Revealed a 18-year-old female in no distress, pleasant. Head: Atraumatic normocephalic. HEENT:[Neck is supple.] [No neck masses.] [No thyromegaly.] [No JVD.] Chest: [Clear throughout, no crackles, no rhonchi, no wheezes.] Cardiac Exam: [Normal S1 and S2, no S3 gallop, no murmur.] Abdomen: [Soft, nontender, no megaly, no rebound, no guarding, normal bowel sounds.] Extremities: [No clubbing, no edema, no cyanosis.] Neurological Exam: [No focal neurologic deficit.] - Labs CBC & Chem 7: 11/17/18 00:00 11/17/18 00:00 Labs: Abnormal Lab Results - Last 24 Hours (Table) 11/17/18 Range/Units 00:00 HDL Cholesterol 93 H (40-60) mg/dL Assessment and Plan Assessment: Impression: Acute exacerbation of mild persistent asthma Acute tracheobronchitis Sinus tachycardia mostly induced by medication and anxiety. Reactive lymph node as noted on CT of the chest, would recommend repeat CT of the chest in 6 months. Recommendation: Suggest discharging the patient home today, discussed that medication with the patient and her mother again the patient should be discharged home on Xopenex, Qvar, prednisone burst and taper, and Singulair 10 mg daily. Other meds to be decided upon by the solar hot water installer and by the admitting physician. Patient should see me for her asthma in 1-2 weeks, she would have PFT done in the office, she would have possibly ALLERGY testing, and other testing if necessary. Cleared for discharge today, discussed her condition with the admitting physician. Time with Patient: Less than 30
[2018-11-18 11:18] VITALS: PULSE 87
== END 2018-11-18 11:48 | disposition home or self-care (01) ==
LOC: EC 22:44 → 1SOBS 11-17 01:10
PROVIDERS: ADMIT Internal Medicine; ATTEND Internal Medicine
DX: J45.31 Mild persistent asthma with (acute) exacerbation (principal); J20.9 Acute bronchitis, unspecified; R00.0 Tachycardia, unspecified; R59.9 Enlarged lymph nodes, unspecified; F41.9 Anxiety disorder, unspecified; Z88.1 Allergy status to other antibiotic agents; Z79.3 Long term (current) use of hormonal contraceptives; T50.905A Adverse effect of unspecified drugs, medicaments and biological substances, initial encounter
CPT/HCPCS: 96361; 96365; 96366; 96372 ×2; 96375; 96376 ×2; 99285; 36415; 94640 ×4; 36600; 93005; 93306; 85379; 83880; 80061; 80053; 84443; 82550; 82553; 82805; 83605; 83735; 84484; 85025; 85610; 85730; 80306; 87502; 71275; G0378 ×2; J2920 ×2; J2930; J1650 ×2; J3475; Q9967

== ENCOUNTER 2020-01-09 19:47 | Emergency (ER) | payer BC ==
[2020-01-09 19:58] VITALS: TEMP 98.9
--- NOTE | 2020-01-09 20:00 | ED ---
SOB HPI - General Stated Complaint: HAL Time Seen by Provider: 01/09/20 19:50 Source: patient, EMS, RN notes reviewed, old records reviewed Mode of arrival: EMS - History of Present Illness Initial Comments: This is a 19-year-old female who presents to ER for evaluation regarding asthma. Patient has history of asthma exacerbation, nonsmoker. Patient has had hospital admissions for asthma in the past she has been debrided she was at home with mild help. Patient presents by EMS breathing treatment hydration here in the ER. Patient denying fevers no chest pain. MD Complaint: shortness of breath, cough, "asthma attack" -: hour(s) Severity: moderate Severity scale (1-10): 6 Quality: aching Consistency: intermittent Improves With: oxygen, rest, bronchodilators, medication Worsens With: exertion, movement Known History Of: asthma Context: recent URI Associated Symptoms: pain with inspiration, cough, sputum production Treatments Prior to Arrival: none - Related Data Home Medications Medication Instructions Recorded Confirmed Albuterol Nebulized [Ventolin 2.5 mg INHALATION RT-QID PRN 11/16/18 11/16/18 Nebulized] Albuterol Sulfate [Proair Hfa] 1 - 2 puff INHALATION RT-QID PRN 11/16/18 11/16/18 Desog-E.estradiol/E.estradiol 1 tab PO DAILY 11/16/18 11/16/18 [Azurette 28 Day Tablet] Doxycycline Hyclate [Vibramycin] 100 mg PO BID 11/16/18 11/16/18 predniSONE [Deltasone] See Taper PO DAILY 11/16/18 11/16/18 Previous Rx's Medication Instructions Recorded Albuterol Nebulized [Ventolin 2.5 mg INHALATION Q4H PRN #25 nebu 01/09/20 Nebulized] Albuterol Sulfate [Proair Hfa] 1 - 2 puff INHALATION Q4H PRN #1 01/09/20 inhaler predniSONE 50 mg PO DAILY #5 tab 01/09/20 Allergies Allergy/AdvReac Type Severity Reaction Status Date / Time azithromycin [From Zithromax] Allergy Rash/Hives Verified 11/16/18 23:08 Review of Systems ROS Statement: Those systems with pertinent positive or pertinent negative responses have been documented in the HPI. ROS Other: All systems not noted in ROS Statement are negative. Past Medical History Past Medical History: Asthma History of Any Multi-Drug Resistant Organisms: None Reported Past Surgical History: No Surgical Hx Reported Past Anesthesia/Blood Transfusion Reactions: No Reported Reaction Past Psychological History: No Psychological Hx Reported Smoking Status: Never smoker Past Alcohol Use History: Occasional Past Drug Use History: None Reported General Exam General appearance: alert, in no apparent distress Head exam: Present: atraumatic, normocephalic, normal inspection Eye exam: Present: normal appearance, PERRL, EOMI. Absent: scleral icterus, conjunctival injection, periorbital swelling ENT exam: Present: normal exam, mucous membranes moist Neck exam: Present: normal inspection. Absent: tenderness, meningismus, lymphadenopathy Respiratory exam: Present: wheezes, decreased breath sounds, prolonged expiratory. Absent: respiratory distress, rales, rhonchi, stridor Cardiovascular Exam: Present: normal rhythm, tachycardia, normal heart sounds. Absent: systolic murmur, diastolic murmur, rubs, gallop, clicks GI/Abdominal exam: Present: soft, normal bowel sounds. Absent: distended, tenderness, guarding, rebound, rigid Extremities exam: Present: normal inspection, full ROM, normal capillary refill. Absent: tenderness, pedal edema, joint swelling, calf tenderness Back exam: Present: normal inspection Neurological exam: Present: alert, oriented X3, CN II-XII intact Psychiatric exam: Present: normal affect, normal mood Skin exam: Present: warm, dry, intact, normal color. Absent: rash Course Vital Signs 01/09/20 01/09/20 01/09/20 19:54 19:58 20:31 Temperature 98.9 F Pulse Rate 0 L 120 H Respiratory 133 H 22 Rate Blood Pressure 136/89 O2 Sat by Pulse 98 Oximetry 01/09/20 01/09/20 01/09/20 20:50 22:00 23:04 Temperature Pulse Rate 120 H 117 H 113 H Respiratory 20 16 Rate Blood Pressure 107/66 117/69 O2 Sat by Pulse 97 96 Oximetry - Reevaluation(s) Reevaluation #1: Medical record is reviewed Patient does feel improved here in the ER is refusing second breathing treatment states symptoms are dramatically improved and would like discharged home Medical Decision Making - Medical Decision Making 19 female DF for evaluation patient with asthma exacerbation symptoms are improved. At this point patient can be discharged home with symptoms are resolved - EKG Data -: EKG Interpreted by Me (EKG shows sinus tachycardia rate of 114, [place] 122, QRS 90, QTc 441) - Radiology Data Radiology results: report reviewed (Chest x-ray is negative for acute disease), image reviewed Disposition Clinical Impression: Tachycardia, Acute bronchitis, Asthma with acute exacerbation Disposition: HOME SELF-CARE Condition: Good Instructions (If sedation given, give patient instructions): Asthma (ED) Prescriptions: predniSONE 50 mg PO DAILY #5 tab Albuterol Sulfate [Proair Hfa] 1 - 2 puff INHALATION Q4H PRN #1 inhaler PRN Reason: Shortness Of Breath Albuterol Nebulized [Ventolin Nebulized] 2.5 mg INHALATION Q4H PRN #25 nebu PRN Reason: Shortness Of Breath Is patient prescribed a controlled substance at d/c from ED?: No Referrals: Mary Ann Weiner MD [Primary Care Provider] - 1-2 days
[2020-01-09] MEDS ORDERED: SODIUM CHLORIDE 0.9% 500 ML 1,000 ML IV STA (20:02)
[2020-01-09] MEDS ORDERED: DEXAMETHASONE SOD PHOSPHATE 10 MG/ML 1 ML VIAL IV STA (20:02)
[2020-01-09] MEDS ORDERED: SODIUM CHLORIDE 0.9% 1,000 ML IV STA ×2 (20:02)
[2020-01-09] MEDS ORDERED: IPRATROPIUM-ALBUTEROL 3 ML NEB INHALATION STA ×2 (20:02→22:18)
--- NOTE | 2020-01-09 20:24 | XR ---
EXAMINATION TYPE: XR chest 2V DATE OF EXAM: 01/09/2020 COMPARISON: NONE HISTORY: Short of breath. Cough. TECHNIQUE: 2 views FINDINGS: Heart and mediastinum are normal. There is some linear density left upper lobe. There are n o hilar masses. Costophrenic angles are clear. IMPRESSION: Intimal scarring or subsegmental atelectasis left upper lobe. Normal heart.
[2020-01-09] MEDS: MAGNESIUM SULFATE-D5W PMX 1 GM in DEXTROSE/WATER 1 100ML.BAG IVPB SCH ×2 (21:57→23:04)
[2020-01-09 23:04] VITALS: BP 117/69; PULSE 113; RESP 16
== END 2020-01-09 23:15 | disposition home or self-care (01) ==
LOC: EC 19:47
DX: J45.901 Unspecified asthma with (acute) exacerbation (principal); R00.0 Tachycardia, unspecified; Z79.51 Long term (current) use of inhaled steroids; Z79.52 Long term (current) use of systemic steroids; Z88.1 Allergy status to other antibiotic agents
CPT/HCPCS: 94640; 71046; 99285; 96374; 96361 ×3; J1100; J3475

== ENCOUNTER 2023-10-25 03:06 | Emergency (ER) | payer BC ==
[2023-10-25 03:23] VITALS: TEMP 98.3
--- NOTE | 2023-10-25 03:58 | ED ---
Back Pain HPI - General Chief Complaint: Back Pain/Injury Stated Complaint: Lower back pain Time Seen by Provider: 10/25/23 03:36 Source: patient Limitations: no limitations - History of Present Illness Initial Comments: 's patient is 23-year-old woman presenting with right flank pain that is been going on proximally 30 hours. She states that she has had associated nausea but no vomiting. She also is having a little bit of dysuria. Patient states that last week she had a LEEP procedure. She states there did not seem to be any difficulty with the procedure. Since that time she has been having a little bit of bloody discharge, about consistent with a menstrual period. He has not noted fevers or chills. She is not having abdominal pain. MD Complaint: back pain Onset/Timin -: hour(s) Similar Symptoms Previously: No Place: home Radiation: none Severity: moderate Quality: aching Consistency: constant Improves With: none Worsens With: none Associated Symptoms: nausea/vomiting - Related Data Home Medications Medication Instructions Recorded Confirmed Albuterol Sulfate [Proair Hfa] 1 - 2 puff INHALATION RT-QID PRN 11/16/18 10/30/23 desog-e.estradioL/e.estradioL 1 tab PO DAILY 11/16/18 10/30/23 [Azurette 28 Day Tablet] HYDROcodone/APAP 7.5-325MG [[place] 1 tab PO Q4H PRN 10/30/23 10/30/23 7.5-325] Ibuprofen [Motrin] 600 mg PO Q6H PRN 10/30/23 10/30/23 Reslizumab [Cinqair] 1 dose IV Q28D 10/30/23 10/30/23 metroNIDAZOLE 0.75% VAGINAL 1 applic VAGINAL DAILY 10/30/23 10/30/23 [Metrogel Vaginal] Budesonide/Formoterol Fumarate 2 puff INHALATION RT-BID 10/31/23 10/31/23 [Symbicort 160-4.5 Mcg Inhaler] Previous Rx's Medication Instructions Recorded Tamsulosin [Flomax] 0.4 mg PO DAILY #7 cap 10/25/23 Allergies Allergy/AdvReac Type Severity Reaction Status Date / Time azithromycin [From Zithromax] Allergy Rash/Hives Verified 10/30/23 12:15 Review of Systems ROS Statement: Those systems with pertinent positive or pertinent negative responses have been documented in the HPI. ROS Other: All systems not noted in ROS Statement are negative. Constitutional: Denies: fever, chills Respiratory: Denies: cough, dyspnea Cardiovascular: Denies: chest pain, palpitations, edema Gastrointestinal: Reports: abdominal pain, nausea. Denies: vomiting, diarrhea, constipation, melena, hematochezia Genitourinary: Reports: dysuria, abnormal menses. Denies: frequency, hematuria Musculoskeletal: Reports: back pain Skin: Denies: rash Neurological: Denies: headache, weakness Past Medical History Past Medical History: Asthma History of Any Multi-Drug Resistant Organisms: None Reported Past Surgical History: No Surgical Hx Reported Additional Past Surgical History / Comment(s): leep Past Anesthesia/Blood Transfusion Reactions: No Reported Reaction Past Psychological History: No Psychological Hx Reported Smoking Status: Never smoker Past Alcohol Use History: Occasional Past Drug Use History: None Reported General Exam Limitations: no limitations General appearance: alert, in no apparent distress Head exam: Present: atraumatic, normocephalic Eye exam: Present: normal appearance. Absent: scleral icterus, conjunctival injection Neck exam: Present: normal inspection Respiratory exam: Present: normal lung sounds bilaterally. Absent: respiratory distress, wheezes, rales, rhonchi, stridor Cardiovascular Exam: Present: normal rhythm, tachycardia, normal heart sounds. Absent: systolic murmur, diastolic murmur, rubs, gallop GI/Abdominal exam: Present: soft. Absent: distended, tenderness, guarding, tera ound, rigid, mass, pulsatile mass Extremities exam: Present: normal inspection, normal capillary refill. Absent: pedal edema, calf tenderness Back exam: Present: normal inspection, CVA tenderness (R). Absent: CVA tenderness (L), paraspinal tenderness, vertebral tenderness Neurological exam: Present: alert Skin exam: Present: warm, dry, intact, normal color. Absent: rash Course Vital Signs 10/25/23 10/25/23 03:12 06:57 Temperature 98.3 F Pulse Rate 123 H 80 Respiratory 20 16 Rate Blood Pressure 132/90 127/85 O2 Sat by Pulse 96 99 Oximetry Medical Decision Making - Medical Decision Making The patient had computed tomography scan of the abdomen and pelvis which I inte rpreted to show mild degree of hydro-and small stone. Was pt. sent in by a medical professional or institution (SHEREEN Castillo, SENIOR STATISTICAL PROGRAMMER, urgent care, hospital, or jail...) When possible be specific @ -[No] Did you speak to anyone other than the patient for history (EMS, parent, family, police, friend...)? What history was obtained from this source @ -[No] Did you review nursing and triage notes (agree or disagree)? Why? @ -[I reviewed and agree with nursing and triage notes] Were old charts reviewed (outside hosp., previous admission, EMS record, old EKG, old radiological studies, urgent care reports/EKG's, jail records)? Report findings @ -[No old charts were reviewed] Differential Diagnosis (chest pain, altered mental status, abdominal pain women, abdominal pain men, vaginal bleeding, weakness, fever, dyspnea, syncope, headache, dizziness, GI bleed, back pain, seizure, CVA, palpatations, mental health, musculoskeletal)? @ -[Differential Abdominal Pain Women: Appendicitis, Cholecystitis, diverticulosis, ischemic bowel, pancreatitis, hepatitis, UTI, gastroenteritis, AAA, incarcerated hernia, bowel obstruction, constipation, inflammatory bowel, hepatitis, peptic ulcer disease, splenic infarction, perforated viscus, vulvitis, ovarian torsion, PID, kidney stone, placenta abruption, this is not meant to be an all-inclusive list EKG interpreted by me (3pts min.). @ -[As above] X-rays interpreted by me (1pt min.). @ -[None done] CT interpreted by me (1pt min.). @ -[I interpreted as above U/S interpreted by me (1pt. min.). @ -[None done] What testing was considered but not performed or refused? (CT, X-rays, U/S, labs)? Why? @ -[None] What meds were considered but not given or refused? Why? @ -[None] Did you discuss the management of the patient with other professionals (professionals i.e. SHEREEN Castillo, SENIOR STATISTICAL PROGRAMMER, lab, RT, psych nurse, social worker masters, precision filer hand, teacher, special service officer, case management associate)? Give summary @ -[No] Was smoking cessation discussed for >3mins.? @ -[No] Was critical care preformed (if so, how long)? @ -[No] Were there social determinants of health that impacted care today? How? (Homelessness, low income, unemployed, alcoholism, drug addiction, transportation, low edu. Level, literacy, decrease access to med. care, usp, rehab)? @ -[No] Was there de-escalation of care discussed even if they declined (Discuss DNR or withdrawal of care, Hospice)? DNR status @ -[No] What co-morbidities impacted this encounter? (DM, HTN, Smoking, COPD, CAD, Cancer, CVA, ARF, Chemo, Hep., AIDS, mental health diagnosis, sleep apnea, morbid obesity)? @ -[None] Was patient admitted / discharged? Hospital course, mention meds given and route, prescriptions, significant lab abnormalities, going to OR and other pertinent info. @ -['s patient is a 23-year-old woman presenting with flank pain. The history and physical consistent with kidney stone. The patient's computed tomography scan does appear to show small stone with hydro. The patient is feeling better with treatment. We discussed appropriate further care and follow-up as well as return parameters. Undiagnosed new problem with uncertain prognosis? @ -[No] Drug Therapy requiring intensive monitoring for toxicity (Heparin, Nitro, Insulin, Cardizem)? @ -[No] Were any procedures done? @ -[No] Diagnosis/symptom? @ -[Acute renal colic Acute, or Chronic, or Acute on Chronic? @ -[Acute Uncomplicated (without systemic symptoms) or Complicated (systemic symptoms)? @ -[Uncomplicated Side effects of treatment? @ -[No] Exacerbation, Progression, or Severe Exacerbation? @ -[No] Poses a threat to life or bodily function? How? (Chest pain, [place], [place], pneumonia, PE, COPD, DKA, ARF, appy, cholecystitis, CVA, Diverticulitis, Homicidal, Suicidal, threat to staff... and all critical care pts) @ -[No] - Lab Data Result diagrams: 10/25/23 04:15 10/25/23 04:15 Lab Results 10/25/23 10/25/23 10/25/23 Range/Units 04:15 04:15 04:15 WBC 10.9 H (3.8-10.6) k/uL RBC 4.66 (3.80-5.40) m/uL Hgb 14.0 (11.4-16.0) gm/dL Hct 41.0 (34.0-46.0) % MCV 88.1 (80.0-100.0) fL MCH 30.0 (25.0-35.0) pg MCHC 34.1 (31.0-37.0) g/dL RDW 12.3 (11.5-15.5) % Plt Count 157 (150-450) k/uL MPV 9.8 Neutrophils % 72 % Lymphocytes % 19 % Monocytes % 6 % Eosinophils % 1 % Basophils % 0 % Neutrophils # 7.9 H (1.3-7.7) k/uL Lymphocytes # 2.1 (1.0-4.8) k/uL Monocytes # 0.7 (0-1.0) k/uL Eosinophils # 0.1 (0-0.7) k/uL Basophils # 0.0 (0-0.2) k/uL Sodium 137 (137-145) mmol/L Potassium 4.3 (3.5-5.1) mmol/L Chloride 104 (98-107) mmol/L Carbon Dioxide 22 (22-30) mmol/L Anion Gap 11 mmol/L BUN 11 (7-17) mg/dL Creatinine 0.86 (0.52-1.04) mg/dL Est GFR (CKD-EPI)AfAm >90 (>60 ml/min/1.73 sqM) Est GFR (CKD-EPI)NonAf >90 (>60 ml/min/1.73 sqM) Glucose 91 (74-99) mg/dL Calcium 9.9 (8.4-10.2) mg/dL Total Bilirubin 1.0 (0.2-1.3) mg/dL AST 23 (14-36) U/L ALT 11 (4-34) U/L Alkaline Phosphatase 69 (38-126) U/L Total Protein 7.3 (6.3-8.2) g/dL Albumin 4.4 (3.5-5.0) g/dL Urine Color Yellow Urine Appearance Slightly Cloudy H (Clear) Urine pH 6.0 (5.0-8.0) Ur Specific [place] 1.010 (1.001-1.035) Urine Protein 1+ H (Negative) Urine Glucose (UA) Negative (Negative) Urine Ketones 3+ (Negative) Urine Blood Moderate H (Negative) Urine Nitrite Positive H (Negative) Urine Bilirubin Negative (Negative) Urine Urobilinogen <2.0 (<2.0) mg/dL Ur Leukocyte Esterase Moderate H (Negative) Urine RBC 57 H (0-5) /hpf Urine WBC >182 H (0-5) /hpf Urine WBC Clumps Many H (None) /hpf Ur Squamous Epith Cells 6 H (0-4) /hpf Urine Bacteria Many H (None) /hpf Urine Mucus Occasional H (None) /hpf Urine Yeast (Budding) Occasional H (None) /hpf Disposition Clinical Impression: Renal colic on right side Disposition: HOME SELF-CARE Condition: Good Instructions (If sedation given, give patient instructions): Flank Pain (ED) Prescriptions: Tamsulosin [Flomax] 0.4 mg PO DAILY #7 cap Is patient prescribed a controlled substance at d/c from ED?: No Referrals: Mary Ann Weiner MD [Primary Care Provider] - 1-2 days
[2023-10-25] MEDS ORDERED: MORPHINE SULFATE 4 MG/ML SYRINGE IV STA (04:05)
[2023-10-25] MEDS ORDERED: ONDANSETRON 4 MG/2 ML VIAL IVP STA (04:05)
[2023-10-25] MEDS ORDERED: SODIUM CHLORIDE 0.9% 1,000 ML IV ONE (04:05)
[2023-10-25 04:28] LABS: Basophils % (A) 0 %; Eosinophils # (A) 0.1 k/uL (0-0.7); Eosinophils % (A) 1 %; Lymphocytes # (A) 2.1 k/uL (1.0-4.8); Lymphocytes % (A) 19 %; MCHC 34.1 g/dL (31.0-37.0); MCV 88.1 fL (80.0-100.0); Mean Platelet Volume 9.8; Monocytes # (A) 0.7 k/uL (0-1.0); Monocytes % (A) 6 %; Neutrophils # (A) 7.9 k/uL (1.3-7.7); Neutrophils % (A) 72 %; Platelet Count 157 k/uL (150-450); RBC 4.66 m/uL (3.80-5.40); RDW 12.3 % (11.5-15.5); WBC 10.9 k/uL (3.8-10.6)
[2023-10-25 04:37] LABS: ALT 11 U/L (4-34); AST 23 U/L (14-36); African American GFR (CKD) >90 (>60 ml/min/1.73 sqM); Albumin 4.4 g/dL (3.5-5.0); Alkaline Phosphatase 69 U/L (38-126); Anion Gap 11 mmol/L; Blood Urea Nitrogen 11 mg/dL (7-17); Calcium 9.9 mg/dL (8.4-10.2); Carbon Dioxide 22 mmol/L (22-30); Chloride 104 mmol/L (98-107); Glucose 91 mg/dL (74-99); Non-African American GFR(CKD) >90 (>60 ml/min/1.73 sqM); Potassium 4.3 mmol/L (3.5-5.1); Sodium 137 mmol/L (137-145); Total Protein 7.3 g/dL (6.3-8.2)
[2023-10-25 05:46] LABS: Bacteria,Urine Many /hpf; Budding Yeast,Urine Occasional /hpf; Mucus,Urine Occasional /hpf; RBC,Urine 57 /hpf (0-5); Squamous Epithelial Cell,Urine 6 /hpf (0-4); WBC,Urine >182 /hpf (0-5)
[2023-10-25 06:07] LABS: Appearance,Urine Slightly Cloudy (Clear); Color,Urine Yellow; Glucose,Urine (UA) Negative (Negative); Ketones,Urine 3+ (Negative); Protein,Urine 1+ (Negative)
[2023-10-25 06:08] LABS: Bilirubin,Urine Negative (Negative); Blood,Urine Moderate (Negative); Leukocyte Esterase,Urine Moderate (Negative); Nitrite,Urine Positive (Negative); Urobilinogen,Urine <2.0 mg/dL (<2.0)
--- NOTE | 2023-10-25 06:15 | CT ---
EXAM: CT Abdomen and Pelvis With Intravenous Contrast CLINICAL HISTORY: ITS.REASON CT Reason: Right flank pain. Recent LEEP TECHNIQUE: Axial computed tomography images of the abdomen and pelvis with intravenous contrast. CTDI is 13.1 mGy and DLP is 590.4 mGy-cm. This CT exam was performed using one or more of the following dose reduction techniques: automated exposure control, adjustment of the mA and/or kV according to patient size, and/or use of iterative reconstruction technique. COMPARISON: No relevant prior studies available. FINDINGS: Lung bases: Unremarkable. No mass. No consolidation. ABDOMEN: Liver: 15 mm focal hepatic hyperenhancement (series 201 image 14), nonspecific, but statistically a flash filling hemangioma. 3 mm hepatic hypodensity (series 201 image 31), too small to characterize, but likely benign. Gallbladder and bile ducts: Unremarkable. No calcified stones. No ductal dilation. Pancreas: Unremarkable. No mass. No ductal dilation. Spleen: Unremarkable. No splenomegaly. Adrenals: Unremarkable. No mass. Kidneys and ureters: Subtle prominence of the right renal collecting system, with hyperenhancement of the renal pelvic and ureteral wall, with a possible distal ureteral 1 mm calcification in the pelvis (series 201 image 70, series 202 image 46). No renal perfusion deficit, perinephric stranding, or intrarenal calculi seen. Stomach and bowel: Unremarkable. No obstruction. No mucosal thickening. PELVIS: Appendix: No findings to suggest acute appendicitis. Bladder: Unremarkable. No mass. Reproductive: Unremarkable as visualized. ABDOMEN and PELVIS: Intraperitoneal space: Unremarkable. No free air. No significant fluid collection. Bones/joints: No acute fracture. No dislocation. Soft tissues: Unremarkable. Vasculature: Unremarkable. No abdominal aortic aneurysm. Lymph nodes: Unremarkable. No enlarged lymph nodes. IMPRESSION: Subtle right pyeloureteritis possibly associated with a 1 mm distal ureteral calculus in the pelvis.
[2023-10-25] MEDS ORDERED: TAMSULOSIN 0.4 MG CAP.ER.24H PO STA (06:47)
[2023-10-25 07:17] VITALS: BP 127/85; PULSE 80; RESP 16
== END 2023-10-25 07:00 | disposition home or self-care (01) ==
LOC: EC 03:06
DX: N23 Unspecified renal colic (principal); J45.909 Unspecified asthma, uncomplicated; Z79.51 Long term (current) use of inhaled steroids; Z88.1 Allergy status to other antibiotic agents
CPT/HCPCS: 36415; 80053; 85025; 81001; 74177; 99284; 96374; 96375; 96361; J2270; J2405; Q9967

== ENCOUNTER 2023-10-29 20:46 | Inpatient (IN) | payer BC ==
[2023-10-29] MEDS ORDERED: SODIUM CHLORIDE 0.9% 2,000 ML IV STA (22:03)
[2023-10-29] MEDS ORDERED: KETOROLAC 15 MG/ML 1 ML VIAL IVP STA (22:03)
[2023-10-29] MEDS ORDERED: SODIUM CHLORIDE 0.9% 1,000 ML IV STA (22:03)
[2023-10-29] MEDS ORDERED: ONDANSETRON 4 MG/2 ML VIAL IVP STA (22:08)
[2023-10-29] MEDS ORDERED: ACETAMINOPHEN IV (For NPO) 1,000 MG in EMPTY BAG 1 BAG IVPB STA (22:08)
[2023-10-29 23:03] LABS: Basophils # (A) 0.1 k/uL (0-0.2); Basophils % (A) 0 %; Eosinophils % (A) 0 %; HCT 40.4 % (34.0-46.0); HGB 13.7 gm/dL (11.4-16.0); Lymphocytes # (A) 1.4 k/uL (1.0-4.8); Lymphocytes % (A) 7 %; MCH 29.4 pg (25.0-35.0); MCV 86.6 fL (80.0-100.0); Mean Platelet Volume 10.4; Monocytes # (A) 1.2 k/uL (0-1.0); Monocytes % (A) 6 %; Neutrophils # (A) 16.1 k/uL (1.3-7.7); Neutrophils % (A) 85 %; Platelet Count 152 k/uL (150-450); RBC 4.67 m/uL (3.80-5.40); RDW 12.2 % (11.5-15.5)
[2023-10-29 23:13] LABS: ALT 11 U/L (4-34); AST 20 U/L (14-36); African American GFR (CKD) >90 (>60 ml/min/1.73 sqM); Albumin 4.2 g/dL (3.5-5.0); Alkaline Phosphatase 92 U/L (38-126); Anion Gap 13 mmol/L; Blood Urea Nitrogen 5 mg/dL (7-17); Calcium 9.7 mg/dL (8.4-10.2); Carbon Dioxide 24 mmol/L (22-30); Chloride 96 mmol/L (98-107); Glucose 100 mg/dL (74-99); Lipase 36 U/L (23-300); Non-African American GFR(CKD) >90 (>60 ml/min/1.73 sqM); Potassium 3.9 mmol/L (3.5-5.1); Sodium 133 mmol/L (137-145); Total Bilirubin 0.5 mg/dL (0.2-1.3); Total Protein 7.2 g/dL (6.3-8.2)
[2023-10-29 23:19] LABS: Amorphous Sediment,Urine Rare /hpf; Appearance,Urine Clear (Clear); Bacteria,Urine Rare /hpf; Bilirubin,Urine Negative (Negative); Blood,Urine Negative (Negative); Color,Urine Colorless; Glucose,Urine (UA) Negative (Negative); Ketones,Urine 1+ (Negative); Leukocyte Esterase,Urine Small (Negative); Mucus,Urine Rare /hpf; Nitrite,Urine Negative (Negative); Protein,Urine Negative (Negative); RBC,Urine 1 /hpf (0-5); Specific Gravity,Urine 1.005 (1.001-1.035); Squamous Epithelial Cell,Urine 3 /hpf (0-4); Urobilinogen,Urine <2.0 mg/dL (<2.0); WBC,Urine 13 /hpf (0-5)
--- NOTE | 2023-10-29 23:52 | CT ---
EXAM: CT Abdomen and Pelvis Without Intravenous Contrast CLINICAL HISTORY: ITS.REASON CT Reason: abdominal pain, fever, sepsis TECHNIQUE: Axial computed tomography images of the abdomen and pelvis without intravenous contrast. CTDI is 7.87 mGy and DLP is 461.8 mGy-cm. This CT exam was performed using one or more of the following dose reduction techniques: automated exposure control, adjustment of the mA and/or kV according to patient size, and/or use of iterative reconstruction technique. COMPARISON: CT abdomen pelvis October 25, 2023. FINDINGS: Lung bases: Unremarkable. No mass. No consolidation. ABDOMEN: Liver: Unremarkable. Gallbladder and bile ducts: Unremarkable. No calcified stones. No ductal dilation. Pancreas: Unremarkable. No ductal dilation. Spleen: Unremarkable. No splenomegaly. Adrenals: Unremarkable. No mass. Kidneys and ureters: Nonobstructing 1 mm RIGHT upper pole renal stone. Stomach and bowel: Unremarkable. No obstruction. No mucosal thickening. PELVIS: Appendix: Normal appendix. Bladder: Unremarkable. No stones. Reproductive: Unremarkable as visualized. ABDOMEN and PELVIS: Intraperitoneal space: Unremarkable. No free air. No significant fluid collection. Bones/joints: No acute fracture. No dislocation. Soft tissues: Unremarkable. Vasculature: Unremarkable. No abdominal aortic aneurysm. Lymph nodes: Unremarkable. No enlarged lymph nodes. IMPRESSION: 1. Normal appendix. 2. Nonobstructing 1 mm RIGHT upper pole renal stone. Note, patient had pyelonephritis on CT report from October 25, 2023 (4 days ago).
[2023-10-30] MEDS ORDERED: NALOXONE 0.4 MG/ML 1 ML VIAL IV PRN (00:09)
--- NOTE | 2023-10-30 00:09 | ED ---
General Adult HPI - General Chief complaint: Abdominal Pain Stated complaint: abdominal pain Time Seen by Provider: 10/29/23 21:17 Source: patient Mode of arrival: ambulatory Limitations: no limitations - History of Present Illness Initial comments: 23-year-old female presents emergency department reporting to continued right flank pain. She was seen in the emergency department on the for similar complaint. She did have a CT performed that demonstrated a distal 1 mm ureteral stone. Patient also had an infected urine. Diagnosis was renal colic the patient was discharged home with Flomax. She states that she additionally has had a LEEP procedure and has had some mild discharge. She followed up with her KEG FILLER yesterday and he placed her on Flagyl for possible infection. Patient was also under the impression that she was being treated for an infected urine however is not on any additional antibiotics. The patient has been having in termittent fevers for which she is taking Motrin and Tylenol. She denies dysuria but admits to hematuria. Mild vaginal bleeding. No changes in her bowel habits. Denies concern for . No other alleviating, precipitating or modifying factors - Related Data Home Medications Medication Instructions Recorded Confirmed Albuterol Nebulized [Ventolin 2.5 mg INHALATION RT-QID PRN 11/16/18 11/16/18 Nebulized] Albuterol Sulfate [Proair Hfa] 1 - 2 puff INHALATION RT-QID PRN 11/16/18 11/16/18 Doxycycline Hyclate [Vibramycin] 100 mg PO BID 11/16/18 11/16/18 RX: predniSONE [Deltasone] See Taper PO DAILY 11/16/18 11/16/18 desog-e.estradioL/e.estradioL 1 tab PO DAILY 11/16/18 11/16/18 [Azurette 28 Day Tablet] Previous Rx's Medication Instructions Recorded RX: Albuterol Nebulized [Ventolin 2.5 mg INHALATION Q4H PRN #25 nebu 01/09/20 Nebulized] RX: Albuterol Sulfate [Proair Hfa] 1 - 2 puff INHALATION Q4H PRN #1 01/09/20 inhaler RX: predniSONE 50 mg PO DAILY #5 tab 01/09/20 Tamsulosin [Flomax] 0.4 mg PO DAILY #7 cap 10/25/23 Allergies Allergy/AdvReac Type Severity Reaction Status Date / Time azithromycin [From Zithromax] Allergy Rash/Hives Verified 10/29/23 20:50 Review of Systems ROS Statement: Those systems with pertinent positive or pertinent negative responses have been documented in the HPI. ROS Other: All systems not noted in ROS Statement are negative. Past Medical History Past Medical History: Asthma History of Any Multi-Drug Resistant Organisms: None Reported Past Surgical History: No Surgical Hx Reported Additional Past Surgical History / Comment(s): leep Past Anesthesia/Blood Transfusion Reactions: No Reported Reaction Past Psychological History: No Psychological Hx Reported Smoking Status: Never smoker Past Alcohol Use History: Occasional Past Drug Use History: None Reported General Exam Limitations: no limitations General appearance: alert, in no apparent distress Head exam: Present: atraumatic, normocephalic, normal inspection Eye exam: Present: normal appearance, PERRL, EOMI. Absent: scleral icterus, conjunctival injection, periorbital swelling ENT exam: Present: normal exam, mucous membranes moist Neck exam: Present: normal inspection. Absent: tenderness, meningismus, lymphadenopathy Respiratory exam: Present: normal lung sounds bilaterally. Absent: respiratory distress, wheezes, rales, rhonchi, stridor Cardiovascular Exam: Present: regular rate, normal rhythm, normal heart sounds. Absent: systolic murmur, diastolic murmur, rubs, gallop, clicks GI/Abdominal exam: Present: soft, normal bowel sounds. Absent: distended, tenderness, guarding, rebound, rigid Extremities exam: Present: normal inspection, full ROM, normal capillary refill. Absent: tenderness, pedal edema, joint swelling, calf tenderness Back exam: Present: normal inspection Neurological exam: Present: alert, oriented X3, CN II-XII intact Psychiatric exam: Present: normal affect, normal mood Skin exam: Present: warm, dry, intact, normal color. Absent: rash Course Vital Signs 10/29/23 10/29/23 20:50 23:20 Temperature 101.1 F H 98.6 F Pulse Rate 145 H 100 Respiratory 18 18 Rate Blood Pressure 123/83 107/68 O2 Sat by Pulse 96 96 Oximetry Medical Decision Making - Medical Decision Making Was pt. sent in by a medical professional or institution (, PA, [employer], urgent care, hospital, or senior care...) When possible be specific @ -No Did you speak to anyone other than the patient for history (EMS, parent, family, police, friend...)? What history was obtained from this source @ -No Did you review nursing and triage notes (agree or disagree)? Why? @ -I reviewed and agree with nursing and triage notes Were old charts reviewed (outside hosp., previous admission, EMS record, old EKG, old radiological studies, urgent care reports/EKG's, senior care records)? Report findings @ -I reviewed the patient's ED visit from the 12[facility] Differential Diagnosis (chest pain, altered mental status, abdominal pain women, abdominal pain men, vaginal bleeding, weakness, fever, dyspnea, syncope, headache, dizziness, GI bleed, back pain, seizure, CVA, palpatations, mental health, musculoskeletal)? @ -Differential Abdominal Pain Women: Appendicitis, Cholecystitis, diverticulosis, ischemic bowel, pancreatitis, hepatitis, UTI, gastroenteritis, AAA, incarcerated hernia, bowel obstruction, constipation, inflammatory bowel, hepatitis, peptic ulcer disease, splenic infarction, perforated viscus, vulvitis, ovarian torsion, PID, kidney stone, placenta abruption, this is not meant to be an all-inclusive list EKG interpreted by me (3pts min.). @ -Not done X-rays interpreted by me (1pt min.). @ -None done CT interpreted by me (1pt min.). @ -Yes and demonstrates no distal ureteral stone U/S interpreted by me (1pt. min.). @ -None done What testing was considered but not performed or refused? (CT, X-rays, U/S, labs)? Why? @ -None What meds were considered but not given or refused? Why? @ -None Did you discuss the management of the patient with other professionals (professionals i.e. , PA, [employer], lab, RT, psych nurse, marriage and family social worker, small piece cutter, teacher, commissioned defence force officer, rehabilitation case coordinator)? Give summary @ -Spoke with kayla from [facility]. Was smoking cessation discussed for >3mins.? @ -No Was critical care preformed (if so, how long)? @ -No Were there social determinants of health that impacted care today? How? (Homelessness, low income, unemployed, alcoholism, drug addiction, transportation, low edu. Level, literacy, decrease access to med. care, half-way, rehab)? @ -No Was there de-escalation of care discussed even if they declined (Discuss DNR or withdrawal of care, Hospice)? DNR status @ -No What co-morbidities impacted this encounter? (DM, HTN, Smoking, COPD, CAD, Cancer, CVA, ARF, Chemo, Hep., AIDS, mental health diagnosis, sleep apnea, morbid obesity)? @ -None Was patient admitted / discharged? Hospital course, mention meds given and route, prescriptions, significant lab abnormalities, going to OR and other pertinent info. @ -Admitted. Upon arrival patient was placed into room 10. A thorough history and physical exam was performed. IV access is established. Laboratory studies were conducted. She was given Zofran, Tylenol, 1 L bolus of normal saline and Toradol. Patient does provide urine sample. CT was performed due to concern for septic stone. CT demonstrates that the distal ureteral stone has passed at this time. Patient's white blood cell count is 19. She is given a gram of Rocephin after blood cultures are obtained. Due to 3/4 SIRS criteria, patient will be admitted for observation. Patient was agreeable to admission. She does have improvement in her heart rate with fever control. Patient taken to the floor in stable condition Undiagnosed new problem with uncertain prognosis? @ -No Drug Therapy requiring intensive monitoring for toxicity (Heparin, Nitro, Insulin, Cardizem)? @ -No Were any procedures done? @ -No Diagnosis/symptom? @ -Acute flank pain, acute pyelonephritis Acute, or Chronic, or Acute on Chronic? @ -Acute Uncomplicated (without systemic symptoms) or Complicated (systemic symptoms)? @ Complicated Side effects of treatment? @ -No Exacerbation, Progression, or Severe Exacerbation? @ -No Poses a threat to life or bodily function? How? (Chest pain, USA, NM, pneumonia, PE, COPD, DKA, ARF, appy, cholecystitis, CVA, Diverticulitis, Homicidal, Suicidal, threat to staff... and all critical care pts) @ -No - Lab Data Result diagrams: 10/29/23 22:45 10/29/23 22:45 Lab Results 10/29/23 10/29/23 10/29/23 Range/Units 22:45 22:45 22:45 WBC 19.0 H (3.8-10.6) k/uL RBC 4.67 (3.80-5.40) m/uL Hgb 13.7 (11.4-16.0) gm/dL Hct 40.4 (34.0-46.0) % MCV 86.6 (80.0-100.0) fL MCH 29.4 (25.0-35.0) pg MCHC 34.0 (31.0-37.0) g/dL RDW 12.2 (11.5-15.5) % Plt Count 152 (150-450) k/uL MPV 10.4 Neutrophils % 85 % Lymphocytes % 7 % Monocytes % 6 % Eosinophils % 0 % Basophils % 0 % Neutrophils # 16.1 H (1.3-7.7) k/uL Lymphocytes # 1.4 (1.0-4.8) k/uL Monocytes # 1.2 H (0-1.0) k/uL Eosinophils # 0.0 (0-0.7) k/uL Basophils # 0.1 (0-0.2) k/uL Sodium 133 L (137-145) mmol/L Potassium 3.9 (3.5-5.1) mmol/L Chloride 96 L (98-107) mmol/L Carbon Dioxide 24 (22-30) mmol/L Anion Gap 13 mmol/L BUN 5 L (7-17) mg/dL Creatinine 0.69 (0.52-1.04) mg/dL Est GFR (CKD-EPI)AfAm >90 (>60 ml/min/1.73 sqM) Est GFR (CKD-EPI)NonAf >90 (>60 ml/min/1.73 sqM) Glucose 100 H (74-99) mg/dL Plasma Lactic Acid Mark (0.7-2.0) mmol/L Calcium 9.7 (8.4-10.2) mg/dL Total Bilirubin 0.5 (0.2-1.3) mg/dL AST 20 (14-36) U/L ALT 11 (4-34) U/L Alkaline Phosphatase 92 (38-126) U/L Total Protein 7.2 (6.3-8.2) g/dL Albumin 4.2 (3.5-5.0) g/dL Lipase 36 (23-300) U/L Urine Color Urine Appearance (Clear) Urine pH (5.0-8.0) Ur Specific [place] (1.001-1.035) Urine Protein (Negative) Urine Glucose (UA) (Negative) Urine Ketones (Negative) Urine Blood (Negative) Urine Nitrite (Negative) Urine Bilirubin (Negative) Urine Urobilinogen (<2.0) mg/dL Ur Leukocyte Esterase (Negative) Urine RBC (0-5) /hpf Urine WBC (0-5) /hpf Ur Squamous Epith Cells (0-4) /hpf Amorphous Sediment (None) /hpf Urine Bacteria (None) /hpf Urine Mucus (None) /hpf Urine HCG, Qual Not Detected (Not Detectd) 10/29/23 10/29/23 Range/Units 22:45 22:45 WBC (3.8-10.6) k/uL RBC (3.80-5.40) m/uL Hgb (11.4-16.0) gm/dL Hct (34.0-46.0) % MCV (80.0-100.0) fL MCH (25.0-35.0) pg MCHC (31.0-37.0) g/dL RDW (11.5-15.5) % Plt Count (150-450) k/uL MPV Neutrophils % % Lymphocytes % % Monocytes % % Eosinophils % % Basophils % % Neutrophils # (1.3-7.7) k/uL Lymphocytes # (1.0-4.8) k/uL Monocytes # (0-1.0) k/uL Eosinophils # (0-0.7) k/uL Basophils # (0-0.2) k/uL Sodium (137-145) mmol/L Potassium (3.5-5.1) mmol/L Chloride (98-107) mmol/L Carbon Dioxide (22-30) mmol/L Anion Gap mmol/L BUN (7-17) mg/dL Creatinine (0.52-1.04) mg/dL Est GFR (CKD-EPI)AfAm (>60 ml/min/1.73 sqM) Est GFR (CKD-EPI)NonAf (>60 ml/min/1.73 sqM) Glucose (74-99) mg/dL Plasma Lactic Acid Mark 1.3 (0.7-2.0) mmol/L Calcium (8.4-10.2) mg/dL Total Bilirubin (0.2-1.3) mg/dL AST (14-36) U/L ALT (4-34) U/L Alkaline Phosphatase (38-126) U/L Total Protein (6.3-8.2) g/dL Albumin (3.5-5.0) g/dL Lipase (23-300) U/L Urine Color Colorless Urine Appearance Clear (Clear) Urine pH 6.0 (5.0-8.0) Ur Specific [place] 1.005 (1.001-1.035) Urine Protein Negative (Negative) Urine Glucose (UA) Negative (Negative) Urine Ketones 1+ H (Negative) Urine Blood Negative (Negative) Urine Nitrite Negative (Negative) Urine Bilirubin Negative (Negative) Urine Urobilinogen <2.0 (<2.0) mg/dL Ur Leukocyte Esterase Small H (Negative) Urine RBC 1 (0-5) /hpf Urine WBC 13 H (0-5) /hpf Ur Squamous Epith Cells 3 (0-4) /hpf Amorphous Sediment Rare H (None) /hpf Urine Bacteria Rare H (None) /hpf Urine Mucus Rare H (None) /hpf Urine HCG, Qual (Not Detectd) Disposition Clinical Impression: Tachycardia, Pyelonephritis, Flank pain, Sepsis, Leukocytosis Disposition: ADMITTED IP TO THIS [facility] Condition: Stable Is patient prescribed a controlled substance at d/c from ED?: No Time of Disposition: 00:08 Decision to Admit Reason: Admit from EC Decision Date: 10/30/23 Decision Time: 00:09
[2023-10-30] MEDS ORDERED: ONDANSETRON 4 MG/2 ML VIAL IVP PRN (00:16)
[2023-10-30] MEDS ORDERED: IBUPROFEN 400 MG TAB PO PRN (00:16)
[2023-10-30] MEDS: SODIUM CHLORIDE 0.9% 1,000 ML IV SCH ×4 (06:32→20:41)
[2023-10-30] MEDS: ACETAMINOPHEN TAB 325 MG TAB PO PRN ×2 (08:21→15:36)
--- NOTE | 2023-10-30 08:54 | P.HPIM ---
History of Present Illness This is a pleasant 23 years old female with past medical history of asthma. Presents because of right-sided flank pain about 10/10 in severity when he started last Tuesday, currently 3-4/10 in severity, nonspecific but feels like dull in character, nonradiating. Associated with frequent vomiting and patient requested our retrograde her regular diet so she can eat so we can use soft or liquid diet and this was discussed with the staff. She complains with little burning with pain. She denies other abdominal pain, no chest pain or dyspnea. No headache dizziness or weakness. She denies smoking or illicit drugs and she drinks alcohol occasionally She has a fever of 102.8. She has leukocytosis of 19,000 Sodium 133 Rest of BMP and liver enzymes were unremarkable Urine analysis is showing small leukocyte esterase and [address] of the abdomen and pelvis: showing nonobstructive 1 mm right renal stone and pyelonephritis which is also seen on CAT scan of the abdomen done on 10/25 when she came with similar symptoms She received Rocephin 1 g at the emergency room and started at normal saline with 30 mL/h Review of Systems Review of systems CONSTITUTIONAL: No fever, no malaise, no fatigue. HEENT: No recent visual problems or hearing problems. Denied any sore throat. CARDIOVASCULAR: No orthopnea, PND, no palpitations, no syncope. PULMONARY: No shortness of breath, no cough, no hemoptysis. GASTROINTESTINAL: No diarrhea, no nausea, no vomiting, no abdominal pain. Normoactive bowel sounds. NEUROLOGICAL: No headaches, no weakness, no numbness. HEMATOLOGICAL: Denies any bleeding or petechiae. GENITOURINARY: Denies any burning micturition, frequency, or urgency. MUSCULOSKELETAL/RHEUMATOLOGICAL: Denies any joint pain, swelling, or any muscle pain. ENDOCRINE: Denies any polyuria or polydipsia. Past Medical History Past Medical History: Asthma History of Any Multi-Drug Resistant Organisms: None Reported Past Surgical History: No Surgical Hx Reported Additional Past Surgical History / Comment(s): leep Past Anesthesia/Blood Transfusion Reactions: No Reported Reaction Past Psychological History: No Psychological Hx Reported Smoking Status: Never smoker Past Alcohol Use History: Occasional Past Drug Use History: None Reported Medications and Allergies Home Medications Medication Instructions Recorded Confirmed Type Albuterol Nebulized [Ventolin 2.5 mg INHALATION RT-QID PRN 11/16/18 11/16/18 History Nebulized] Albuterol Sulfate [Proair Hfa] 1 - 2 puff INHALATION RT-QID PRN 11/16/18 11/16/18 History Doxycycline Hyclate [Vibramycin] 100 mg PO BID 11/16/18 11/16/18 History RX: predniSONE [Deltasone] See Taper PO DAILY 11/16/18 11/16/18 History desog-e.estradioL/e.estradioL 1 tab PO DAILY 11/16/18 11/16/18 History [Azurette 28 Day Tablet] RX: Albuterol Nebulized [Ventolin 2.5 mg INHALATION Q4H PRN #25 nebu 01/09/20 Rx Nebulized] RX: Albuterol Sulfate [Proair Hfa] 1 - 2 puff INHALATION Q4H PRN #1 01/09/20 Rx inhaler RX: predniSONE 50 mg PO DAILY #5 tab 01/09/20 Rx Tamsulosin [Flomax] 0.4 mg PO DAILY #7 cap 10/25/23 Rx Allergies Allergy/AdvReac Type Severity Reaction Status Date / Time azithromycin [From Zithromax] Allergy Rash/Hives Verified 10/29/23 20:50 Physical Exam Vitals: Vital Signs Temp Pulse Resp BP Pulse Ox 10/29/23 23:20 98.6 F 100 18 107/68 96 10/29/23 20:50 101.1 F H 145 H 18 123/83 96 Intake and Output 10/29/23 10/29/23 10/30/23 14:59 22:59 06:59 Other: Weight 68.039 kg 68.039 kg GENERAL: The patient is alert and oriented x3, not in any acute distress. Well developed, well nourished. HEENT: Pupils are round and equally reacting to light. EOMI. No scleral icterus. No conjunctival pallor. Normocephalic, atraumatic. No pharyngeal erythema. No thyromegaly. CARDIOVASCULAR: S1 and S2 present. No murmurs, rubs, or gallops. PULMONARY: Chest is clear to auscultation, no wheezing , no crackles. -ABDOMEN: Soft, nontender, nondistended, normoactive bowel sounds. No palpable organomegaly. Right CVA tenderness, mild MUSCULOSKELETAL: No joint swelling or deformity. EXTREMITIES: No cyanosis, clubbing, or pedal edema. NEUROLOGICAL: Gross neurological examination did not reveal any focal deficits. SKIN: No rashes. no petechiae. Results CBC & Chem 7: 10/29/23 22:45 10/29/23 22:45 Labs: Abnormal Lab Results - Last 24 Hours (Table) 10/29/23 10/29/23 10/29/23 Range/Units 22:45 22:45 22:45 WBC 19.0 H (3.8-10.6) k/uL Neutrophils # 16.1 H (1.3-7.7) k/uL Monocytes # 1.2 H (0-1.0) k/uL Sodium 133 L (137-145) mmol/L Chloride 96 L (98-107) mmol/L BUN 5 L (7-17) mg/dL Glucose 100 H (74-99) mg/dL Urine Ketones 1+ H (Negative) Ur Leukocyte Esterase Small H (Negative) Urine WBC 13 H (0-5) /hpf Amorphous Sediment Rare H (None) /hpf Urine Bacteria Rare H (None) /hpf Urine Mucus Rare H (None) /hpf Thrombosis Risk Factor Assmnt - Choose All That Apply Any of the Below Risk Factors Present?: No Other Risk Factors: No Thrombosis Risk Factor Assessment Level: Very Low Risk Assessment and Plan Assessment: Acute right pyelonephritis Sepsis with fever and leukocytosis secondary to above Dehydration secondary to above Right nonobstructive renal stone History of asthma Plan: Continue with Rocephin 2 g daily Follow-up urine culture Check renal ultrasound Consult infectious disease team Labs and medication were reviewed.. Continue same treatment. Continue with s ymptomatic treatment. Resume home medication. Monitor labs and vitals. DVT and GI prophylaxis. Further recommendations as per clinical course of the patient DVT prophylaxis: Subcutaneous heparin GI Prophylaxis: Pepcid Prognosis is guarded
--- NOTE | 2023-10-30 11:36 | US ---
EXAMINATION TYPE: US renals and bladder DATE OF EXAM: 10/30/2023 Exam done portable COMPARISON: CT 2022 CLINICAL INDICATION: Female, 23 years old with history of Pyelonephritis; EXAM MEASUREMENTS: Right Kidney: 11.5 x 4.2 x 5.5 cm Left Kidney: 10.2 x 5.1 x 4.1 cm Right Kidney: No hydronephrosis or masses seen Left Kidney: 0.3cm echogenic focus inferior pole, superior pole limited by overlying bowel gas Bladder: wnl Bilateral Jets seen: yes There is no evidence for hydronephrosis at this point in time. No nephrolithiasis is seen. No lucio s are identified. The urinary bladder is anechoic. Bilateral ureteral jets are seen. IMPRESSION: 1. No evidence for obstructive uropathy. 2. Left obstructing calculus.
[2023-10-30] MEDS: HYDROcodone/APAP 5-325MG 1 EACH TAB PO PRN (16:17)
--- NOTE | 2023-10-30 18:32 | P.GSCN ---
History of Present Illness Consult date: 10/30/23 Reason for Consult: Right renal calculi and Pyelonephritis History of present illness: This is a 23 yo female that is admitted to the hospital for right sided pyelonephritis presented to the ED with one week hx of flank pain associated with nausea/vomiting and fever. She initially presented to the ED on 10/25 with similar complaint had CT at that time that was consistent with right sided pyelonephritis and possible 1 mm right distal ureteral stone without hydronephrosis, she indicated that she was discharged home on flomax, but no antibiotics . She had a repeat CT yesterday the showed no evidence of ureteral stone or hydronephrosis, it did show 1 mm right sided renal stone. She was febrile at 102 and tachycardic at that time. On evaluation today she continue to have flank pain, but indicated it improved compared to presentation. Denies any dysuria, gross hematuria, or previous hx of stone. Review of Systems - Constitutional Reports chills, Reports fever, Denies fatigue, Denies weakness - Cardiovascular Denies chest pain, Denies shortness of breath - Respiratory Denies cough, Denies 7 - Genitourinary Genitourinary: Reports flank pain, Denies dysuria, Denies hematuria Past Medical History Past Medical History: Asthma History of Any Multi-Drug Resistant Organisms: None Reported Past Surgical History: No Surgical Hx Reported Additional Past Surgical History / Comment(s): leep Past Anesthesia/Blood Transfusion Reactions: No Reported Reaction Past Psychological History: No Psychological Hx Reported Smoking Status: Never smoker Past Alcohol Use History: Occasional Past Drug Use History: None Reported Medications and Allergies Home Medications Medication Instructions Recorded Confirmed Type Albuterol Sulfate [Proair Hfa] 1 - 2 puff INHALATION RT-QID PRN 11/16/18 10/30/23 History desog-e.estradioL/e.estradioL 1 tab PO DAILY 11/16/18 10/30/23 History [Azurette 28 Day Tablet] Tamsulosin [Flomax] 0.4 mg PO DAILY #7 cap 10/25/23 10/30/23 Rx HYDROcodone/APAP 7.5-325MG [[place] 1 tab PO Q4H PRN 10/30/23 10/30/23 History 7.5-325] Ibuprofen [Motrin] 600 mg PO Q6H PRN 10/30/23 10/30/23 History Reslizumab [Cinqair] 1 dose IV Q28D 10/30/23 10/30/23 History Symbicort (Unknown Strength) 1 dose PO DIRECTED 10/30/23 10/30/23 History metroNIDAZOLE 0.75% VAGINAL 1 applic VAGINAL DAILY 10/30/23 10/30/23 History [Metrogel Vaginal] Allergies Allergy/AdvReac Type Severity Reaction Status Date / Time azithromycin [From Zithromax] Allergy Rash/Hives Verified 10/30/23 12:15 Surgical - Exam Vital Signs Temp Pulse Resp BP Pulse Ox 101.1 F H 145 H 18 123/83 96 10/29/23 20:50 10/29/23 20:50 10/29/23 20:50 10/29/23 20:50 10/29/23 20:50 - General no distress, moderate pain - Eyes normal ocular movement, no pale - ENT normal nares, normal mucosa - Respiratory normal expansion, normal respiratory effort - Abdomen Abdomen: soft, tender (right CVA), no guarding, no rebound, no distended - Psychiatric oriented to time, oriented to person, oriented to place Results - Labs 10/29/23 22:45 10/29/23 22:45 Abnormal Lab Results - Last 24 Hours (Table) 10/29/23 10/29/23 10/29/23 Range/Units 22:45 22:45 22:45 WBC 19.0 H (3.8-10.6) k/uL Neutrophils # 16.1 H (1.3-7.7) k/uL Monocytes # 1.2 H (0-1.0) k/uL Sodium 133 L (137-145) mmol/L Chloride 96 L (98-107) mmol/L BUN 5 L (7-17) mg/dL Glucose 100 H (74-99) mg/dL Urine Ketones 1+ H (Negative) Ur Leukocyte Esterase Small H (Negative) Urine WBC 13 H (0-5) /hpf Amorphous Sediment Rare H (None) /hpf Urine Bacteria Rare H (None) /hpf Urine Mucus Rare H (None) /hpf Diabetes panel 10/29/23 Range/Units 22:45 Sodium 133 L (137-145) mmol/L Potassium 3.9 (3.5-5.1) mmol/L Chloride 96 L (98-107) mmol/L Carbon Dioxide 24 (22-30) mmol/L BUN 5 L (7-17) mg/dL Creatinine 0.69 (0.52-1.04) mg/dL Glucose 100 H (74-99) mg/dL Calcium 9.7 (8.4-10.2) mg/dL AST 20 (14-36) U/L ALT 11 (4-34) U/L Alkaline Phosphatase 92 (38-126) U/L Total Protein 7.2 (6.3-8.2) g/dL Albumin 4.2 (3.5-5.0) g/dL Calcium panel 10/29/23 Range/Units 22:45 Calcium 9.7 (8.4-10.2) mg/dL Albumin 4.2 (3.5-5.0) g/dL Pituitary panel 10/29/23 Range/Units 22:45 Sodium 133 L (137-145) mmol/L Potassium 3.9 (3.5-5.1) mmol/L Chloride 96 L (98-107) mmol/L Carbon Dioxide 24 (22-30) mmol/L BUN 5 L (7-17) mg/dL Creatinine 0.69 (0.52-1.04) mg/dL Glucose 100 H (74-99) mg/dL Calcium 9.7 (8.4-10.2) mg/dL Adrenal panel 10/29/23 Range/Units 22:45 Sodium 133 L (137-145) mmol/L Potassium 3.9 (3.5-5.1) mmol/L Chloride 96 L (98-107) mmol/L Carbon Dioxide 24 (22-30) mmol/L BUN 5 L (7-17) mg/dL Creatinine 0.69 (0.52-1.04) mg/dL Glucose 100 H (74-99) mg/dL Calcium 9.7 (8.4-10.2) mg/dL Total Bilirubin 0.5 (0.2-1.3) mg/dL AST 20 (14-36) U/L ALT 11 (4-34) U/L Alkaline Phosphatase 92 (38-126) U/L Total Protein 7.2 (6.3-8.2) g/dL Albumin 4.2 (3.5-5.0) g/dL - Imaging CT scan - abdomen: image reviewed (1 mm right sided renal stone no hydronephrosis or ureteral stone appreciated) Assessment and Plan Assessment: This is a 23 yo female admitted to the hospital with right sided pyelonephritis, I reviewed her CT and Renal U/S I don't appreciate any ureteral stone or hydronephrosis. She was in ER recently with pyelonephritis, but does not appear to be started on any antibiotics. Her CT and symptoms are consistent with pyelonephritis, I don't appreciate any obstructing stone on CT review -No acute surgical intervention from urology standpoint -Continue IV antibiotics, recommend 2 weeks of abx based on culture susceptibilities
[2023-10-30] MEDS: FAMOTIDINE 20 MG/2 ML VIAL IV SCH (20:38)
[2023-10-30] MEDS: HEPARIN SODIUM,PORCINE 5,000 UNIT/ML 1 ML VIAL SQ SCH (20:38)
[2023-10-31] MEDS: HYDROcodone/APAP 5-325MG 1 EACH TAB PO PRN ×4 (00:27→23:51)
[2023-10-31] MEDS: HEPARIN SODIUM,PORCINE 5,000 UNIT/ML 1 ML VIAL SQ SCH ×2 (08:45→20:11)
[2023-10-31] MEDS: FAMOTIDINE 20 MG/2 ML VIAL IV SCH ×2 (08:45→20:11)
[2023-10-31 09:03] LABS: HCT 30.9 % (37.2-46.3); HGB 10.3 g/dL (12.0-15.0); MCH 29.3 pg (27.0-32.0); MCHC 33.3 g/dL (32.0-37.0); MCV 87.8 FL (80.0-97.0); Mean Platelet Volume 12.7 FL (9.5-12.2); NRBC Per 100 WBC 0 X 10*3/uL (0.00-0.01); Platelet Count 176 X 10*3/uL (140-440); RBC 3.52 X 10*6/uL (4.10-5.20); RDW 12.7 % (11.5-14.5); WBC 14.14 X 10*3/uL (4.50-10.00)
[2023-10-31 09:28] LABS: BUN/Creat Ratio <5.00 Ratio (12.00-20.00); Blood Urea Nitrogen <3.5 mg/dL (9.0-27.0); Calcium 8.2 mg/dL (8.7-10.3); Carbon Dioxide 23.6 mmol/L (21.6-31.8); Chloride 105 mmol/L (96-109); Glucose 81 mg/dL (70-110); Potassium 3.8 mmol/L (3.5-5.5); Sodium 137 mmol/L (135-145)
[2023-10-31 11:00] LABS: Basophils # (A) 0.05 X 10*3/uL (0.00-0.10); Basophils % (A) 0.4 %; Eosinophils # (A) 0 X 10*3/uL (0.04-0.35); Eosinophils % (A) 0 %; Lymphocytes % (A) 17.7 %; Monocytes # (A) 1.79 X 10*3/uL (0.20-1.00); Monocytes % (A) 12.7 %; Neutrophils # (A) 9.73 X 10*3/uL (1.80-7.70); Neutrophils % (A) 68.7 %; RBC Morphology Normal (Normal)
[2023-10-31] MEDS: SODIUM CHLORIDE 0.9% 1,000 ML IV SCH ×2 (11:11→15:19)
[2023-10-31] MEDS ORDERED: KETOROLAC 15 MG/ML 1 ML VIAL IVP PRN (12:23)
--- NOTE | 2023-10-31 22:31 | P.PN ---
Subjective Progress Note Date: 10/31/23 Patient on medical floor. Sitting up in bed, continues to report left and right flank pain, worse on the right. She has a non obstructing stone. Urology evaluated the patient, felt she could pass the stone. Patient continues on IV fluids, and course of IV ceftriaxone. Does have E.Coli bacteremia and for this ID was consulted today. Complaining of achy dull back pain 05/23. White blood cell count has improved to 14.14. Sodium up to 137. Review of Systems Constitutional: Denied any fatigue denied any fever. Cardio vascular: denied any chest pain, palpitations Gastrointestinal: denied any nausea, vomiting, diarrhea Pulmonary: Denied any shortness of breath cough Neurologic denied any new focal deficits All inpatient medications were reviewed and appropriate changes in these medications as dictated in the interval history and assessment and plan. PHYSICAL EXAMINATION: GENERAL: The patient is alert and oriented x3, not in any acute distress. Well developed, well nourished. HEENT: Pupils are round and equally reacting to light. EOMI. No scleral icterus. No conjunctival pallor. Normocephalic, atraumatic. No pharyngeal erythema. No thyromegaly. CARDIOVASCULAR: S1 and S2 present. No murmurs, rubs, or gallops. PULMONARY: Chest is clear to auscultation, no wheezing or crackles. ABDOMEN: Soft, nontender, nondistended, normoactive bowel sounds. No palpable organomegaly. MUSCULOSKELETAL: No joint swelling or deformity. EXTREMITIES: No cyanosis, clubbing, or pedal edema. NEUROLOGICAL: Gross neurological examination did not reveal any focal deficits. SKIN: No rashes. Assessment: Acute right pyelonephritis Sepsis with fever and leukocytosis secondary to above Dehydration secondary to above Hyponatremia, hypvolemic Right nonobstructive renal stone History of asthma Plan: Continue with Rocephin 2 g daily Follow-up urine culture Consult infectious disease team Add IV toradol for pain and continue on norco and tylenol Labs and medication were reviewed. DVT prophylaxis: Subcutaneous heparin GI Prophylaxis: Pepcid Full Code The impression and plan of care has been dictated by Nurse Jalyn Prac titioner as directed. Dr. Herlinda MD I have performed a history and physical examination and medical decision making of this patient, discussed the same with the dictator, and agree with the dictators assessment and plan as written, documented as a scribe. Based on total visit time, I have performed more than 50% of this visit. Objective - Vital Signs Vital signs: Vital Signs Temp 98.5 F 10/31/23 08:00 Pulse 104 H 10/31/23 00:25 Resp 17 10/31/23 08:00 BP 101/64 10/31/23 08:00 Pulse Ox 98 10/31/23 08:00 FiO2 Intake & Output 10/30/23 10/31/23 10/31/23 18:59 06:59 18:59 Intake Total 360 Balance 360 Intake: Oral 360 Other: # Voids 4 2 - Labs CBC & Chem 7: 10/31/23 05:05 10/31/23 05:05 Labs: Abnormal Lab Results - Last 24 Hours (Table) 10/31/23 10/31/23 Range/Units 05:05 05:05 WBC 14.14 H (4.50-10.00) X 10*3/uL RBC 3.52 L (4.10-5.20) X 10*6/uL Hgb 10.3 L (12.0-15.0) g/dL Hct 30.9 L (37.2-46.3) % MPV 12.7 H (9.5-12.2) FL BUN <3.5 L (9.0-27.0) mg/dL BUN/Creatinine Ratio <5.00 L (12.00-20.00) Ratio Calcium 8.2 L (8.7-10.3) mg/dL Microbiology - Last 24 Hours (Table) 10/29/23 22:45 Blood Culture Gram Stain - Preliminary Blood Assessment and Plan Time with Patient: Less than 30
--- NOTE | 2023-10-31 23:15 | P.CONS ---
History of Present Illness - Reason for Consult Consult date: 10/31/23 - History of Present Illness Patient is a 23-year-old female with a past medical history. For asthma patient started having a pain to the right flank area about 4 to 5 days ago patient describes the pain to be more of a dull aching to sharp moderate intensity without radiation with the symptoms the patient was evaluated at [facility] ER the patient did have a CT performed with evidence of kidney stone she did have a positive UA however the patient was diagnosed home on Flomax and no antibiotics subsequently the patient has been evaluated by her OB as the patient recently did have LEEP procedure and did have some drainage and the patient was started on Flagyl, however the patient's symptoms did not improve the patient did have worsening pain to the right flank area becoming more severe in intensity and the patient started having fevers with rigors and chills and did have episodes of vomiting with the symptoms the patient presented back to the hospital on arrival to the ER patient did have a fever of 101 F patient was tachycardic but not hypotensive or hypoxic and did have a white count of 19,000 with a left shift creatinine 0.6,Urine was positive patient did have a abdominal pelvis CT repeated normal appendix nonobstructing 1 mm right upper pole renal stone urology was consulted subsequently blood cultures came back positive with E. coli that has prompted this infectious disease con sultation Past Medical History Past Medical History: Asthma History of Any Multi-Drug Resistant Organisms: None Reported Past Surgical History: No Surgical Hx Reported Additional Past Surgical History / Comment(s): leep Past Anesthesia/Blood Transfusion Reactions: No Reported Reaction Past Psychological History: No Psychological Hx Reported Smoking Status: Never smoker Past Alcohol Use History: Occasional Past Drug Use History: None Reported Medications and Allergies Home Medications Medication Instructions Recorded Confirmed Type Albuterol Sulfate [Proair Hfa] 1 - 2 puff INHALATION RT-QID PRN 11/16/18 10/30/23 History desog-e.estradioL/e.estradioL 1 tab PO DAILY 11/16/18 10/30/23 History [Azurette 28 Day Tablet] Tamsulosin [Flomax] 0.4 mg PO DAILY #7 cap 10/25/23 10/30/23 Rx HYDROcodone/APAP 7.5-325MG [[place] 1 tab PO Q4H PRN 10/30/23 10/30/23 History 7.5-325] Ibuprofen [Motrin] 600 mg PO Q6H PRN 10/30/23 10/30/23 History Reslizumab [Cinqair] 1 dose IV Q28D 10/30/23 10/30/23 History metroNIDAZOLE 0.75% VAGINAL 1 applic VAGINAL DAILY 10/30/23 10/30/23 History [Metrogel Vaginal] Budesonide/Formoterol Fumarate 2 puff INHALATION RT-BID 10/31/23 10/31/23 History [Symbicort 160-4.5 Mcg Inhaler] Allergies Allergy/AdvReac Type Severity Reaction Status Date / Time azithromycin [From Zithromax] Allergy Rash/Hives Verified 10/30/23 12:15 Physical Exam Vitals: Vital Signs Temp Pulse Resp BP Pulse Ox 10/31/23 13:34 98.8 F 89 17 101/65 97 10/31/23 08:00 98.5 F 17 101/64 98 10/31/23 00:25 100.8 F H 104 H 18 102/65 95 10/30/23 19:33 99.8 F H 105 H 16 107/73 98 Intake and Output 10/31/23 10/31/23 10/31/23 06:59 14:59 22:59 Other: # Voids 2 5 Results CBC & Chem 7: 10/31/23 05:05 10/31/23 05:05 Labs: Abnormal Lab Results - Last 24 Hours (Table) 10/31/23 10/31/23 Range/Units 05:05 05:05 WBC 14.14 H (4.50-10.00) X 10*3/uL RBC 3.52 L (4.10-5.20) X 10*6/uL Hgb 10.3 L (12.0-15.0) g/dL Hct 30.9 L (37.2-46.3) % MPV 12.7 H (9.5-12.2) FL Immature Gran # 0.07 H (0.00-0.04) X 10*3/uL Neutrophils # 9.73 H (1.80-7.70) X 10*3/uL Monocytes # 1.79 H (0.20-1.00) X 10*3/uL Eosinophils # 0 L (0.04-0.35) X 10*3/uL BUN <3.5 L (9.0-27.0) mg/dL BUN/Creatinine Ratio <5.00 L (12.00-20.00) Ratio Calcium 8.2 L (8.7-10.3) mg/dL Microbiology - Last 24 Hours (Table) 10/29/23 22:30 Blood Culture - Preliminary Blood 10/29/23 22:45 Blood Culture Gram Stain - Preliminary Blood Assessment and Plan Plan: 1patient presented to hospital with sepsis in this patient who did have a fever tachycardia elevated white count source is right-sided pyelonephritis likely from enteric gram-negative pathogen 2-patient with an E. coli bacteremia source likely right-sided pyelonephritis 3-Rocephin 2 g daily to continue while waiting for sensitivity to finalize on the E. coli to determine her discharge antibiotics 4-gentle IV fluid We will follow on clinical condition and cultures to further adjust medication if needed Thank you for this consultation we will follow the patient along with you Dictation was produced using [employer] dictation software. please excuse any grammatical, word or spelling errors. Time with Patient: Greater than 30
[2023-11-01] MEDS: SODIUM CHLORIDE 0.9% 1,000 ML IV SCH ×3 (01:59→20:36)
[2023-11-01] MEDS: HEPARIN SODIUM,PORCINE 5,000 UNIT/ML 1 ML VIAL SQ SCH ×2 (08:19→20:34)
[2023-11-01] MEDS: FAMOTIDINE 20 MG/2 ML VIAL IV SCH ×2 (08:19→20:34)
[2023-11-01 08:30] LABS: Basophils # (A) 0.03 X 10*3/uL (0.00-0.10); Basophils % (A) 0.3 %; Eosinophils # (A) 0.01 X 10*3/uL (0.04-0.35); Eosinophils % (A) 0.1 %; HCT 30.2 % (37.2-46.3); HGB 10.1 g/dL (12.0-15.0); Lymphocytes # (A) 2.46 X 10*3/uL (0.90-5.00); Lymphocytes % (A) 28.5 %; MCH 28.9 pg (27.0-32.0); MCHC 33.4 g/dL (32.0-37.0); MCV 86.5 FL (80.0-97.0); Mean Platelet Volume 12.5 FL (9.5-12.2); Monocytes # (A) 0.95 X 10*3/uL (0.20-1.00); NRBC Per 100 WBC 0 X 10*3/uL (0.00-0.01); Neutrophils # (A) 5.14 X 10*3/uL (1.80-7.70); Neutrophils % (A) 59.8 %; Platelet Count 195 X 10*3/uL (140-440); RBC 3.49 X 10*6/uL (4.10-5.20); RDW 12.8 % (11.5-14.5); WBC 8.62 X 10*3/uL (4.50-10.00)
--- NOTE | 2023-11-01 23:23 | P.PN ---
Subjective Progress Note Date: 11/01/23 Patient on medical floor. Sitting up in bed, continues to report left and right flank pain, worse on the right. She has a non obstructing stone. Urology evaluated the patient, felt she could pass the stone. Patient continues on IV fluids, and course of IV ceftriaxone. Does have E.Coli bacteremia and for this ID was consulted today. Complaining of achy dull back pain 05/23. White blood cell count has improved to 14.14. Sodium up to 137. 11/01/2023 Patient evaluated today on the medical floor. continues to report right greater than left flank pain. On toradol as needed with tylenol and motrin. On IV c eftriaxone for the E.Coli bacteremia. ID recommending one more overnight with IV antibiotics. Patient is afebrile. Review of Systems Constitutional: Denied any fatigue denied any fever. Cardio vascular: denied any chest pain, palpitations Gastrointestinal: denied any nausea, vomiting, diarrhea Pulmonary: Denied any shortness of breath cough Neurologic denied any new focal deficits All inpatient medications were reviewed and appropriate changes in these medications as dictated in the interval history and assessment and plan. PHYSICAL EXAMINATION: GENERAL: The patient is alert and oriented x3, not in any acute distress. Well developed, well nourished. HEENT: Pupils are round and equally reacting to light. EOMI. No scleral icterus. No conjunctival pallor. Normocephalic, atraumatic. No pharyngeal erythema. No thyromegaly. CARDIOVASCULAR: S1 and S2 present. No murmurs, rubs, or gallops. PULMONARY: Chest is clear to auscultation, no wheezing or crackles. ABDOMEN: Soft, nontender, nondistended, normoactive bowel sounds. No palpable organomegaly. MUSCULOSKELETAL: No joint swelling or deformity. EXTREMITIES: No cyanosis, clubbing, or pedal edema. NEUROLOGICAL: Gross neurological examination did not reveal any focal deficits. SKIN: No rashes. Assessment: Acute right pyelonephritis Sepsis with fever and leukocytosis secondary to above Dehydration secondary to above Hyponatremia, hypvolemic Right nonobstructive renal stone History of asthma Plan: Continue with Rocephin 2 g daily Follow-up urine culture Consult infectious disease team Add IV toradol for pain and continue on norco and tylenol Labs and medication were reviewed. DVT prophylaxis: Subcutaneous heparin GI Prophylaxis: Pepcid Full Code The impression and plan of care has been dictated by Noris Navarrete, Nurse Practitioner as directed. Dr. Herlinda MD I have performed a history and physical examination and medical decision making of this patient, discussed the same with the dictator, and agree with the dictators assessment and plan as written, documented as a scribe. Based on total visit time, I have performed more than 50% of this visit. Objective - Vital Signs Vital signs: Vital Signs Temp 98.5 F 11/01/23 18:57 Pulse 82 11/01/23 18:57 Resp 18 11/01/23 18:57 BP 123/85 11/01/23 18:57 Pulse Ox 99 11/01/23 18:57 FiO2 Intake & Output 11/01/23 11/01/23 11/02/23 06:59 18:59 06:59 Other: Voiding Method Toilet Toilet Toilet # Voids 2 5 # Bowel Movements 1 - Labs CBC & Chem 7: 11/01/23 04:55 10/31/23 05:05 Labs: Abnormal Lab Results - Last 24 Hours (Table) 11/01/23 Range/Units 04:55 RBC 3.49 L (4.10-5.20) X 10*6/uL Hgb 10.1 L (12.0-15.0) g/dL Hct 30.2 L (37.2-46.3) % MPV 12.5 H (9.5-12.2) FL Eosinophils # 0.01 L (0.04-0.35) X 10*3/uL Microbiology - Last 24 Hours (Table) 10/31/23 11:13 Blood Culture - Preliminary Blood 10/29/23 22:30 Blood Culture - Preliminary Blood 10/29/23 22:45 Urine Culture - Final Urine,Voided Assessment and Plan Time with Patient: Less than 30
[2023-11-02] MEDS: FAMOTIDINE 20 MG/2 ML VIAL IV SCH ×2 (08:46→22:25)
[2023-11-02] MEDS: HEPARIN SODIUM,PORCINE 5,000 UNIT/ML 1 ML VIAL SQ SCH ×2 (08:46→22:25)
[2023-11-02] MEDS: SODIUM CHLORIDE 0.9% 1,000 ML IV SCH ×3 (08:47→22:27)
--- NOTE | 2023-11-02 20:08 | P.PN ---
Subjective Patient on medical floor. Sitting up in bed, continues to report left and right flank pain, worse on the right. She has a non obstructing stone. Urology evaluated the patient, felt she could pass the stone. Patient continues on IV fluids, and course of IV ceftriaxone. Does have E.Coli bacteremia and for this ID was consulted today. Complaining of achy dull back pain 05/23. White blood cell count has improved to 14.14. Sodium up to 137. 11/01/2023 Patient evaluated today on the medical floor. continues to report right greater than left flank pain. On toradol as needed with tylenol and motrin. On IV ceftriaxone for the E.Coli bacteremia. ID recommending one more overnight with IV antibiotics. Patient is afebrile. 11/02/2023 Right flank pain is improving No fever or chills Hemodynamically stable She remains on ceftriaxone 2 g with ID team input is appreciated Repeat blood culture from 10/31 is still pending Urologist already evaluated the patient Leukocytosis improved down to 8.6, sodium 137. Hemoglobin stable at 10.1. Possible discharge in 24-48 hours Objective - Vital Signs Vital signs: Vital Signs Temp 98.1 F 11/02/23 06:48 Pulse 74 11/02/23 06:48 Resp 19 11/02/23 06:48 BP 128/81 11/02/23 06:48 Pulse Ox 98 11/02/23 06:48 FiO2 Intake & Output 11/01/23 11/02/23 11/02/23 18:59 06:59 18:59 Other: Voiding Method Toilet Toilet # Voids 5 6 # Bowel Movements 1 1 - Exam GENERAL: The patient is alert and oriented x3, not in any acute distress. Well developed, well nourished. HEENT: Pupils are round and equally reacting to light. EOMI. No scleral icterus. No conjunctival pallor. Normocephalic, atraumatic. No pharyngeal erythema. No thyromegaly. CARDIOVASCULAR: S1 and S2 present. No murmurs, rubs, or gallops. PULMONARY: Chest is clear to auscultation, no wheezing , no crackles. ABDOMEN: Soft, nontender, nondistended, normoactive bowel sounds. No palpable organomegaly. MUSCULOSKELETAL: No joint swelling or deformity. EXTREMITIES: No cyanosis, clubbing, or pedal edema. NEUROLOGICAL: Gross neurological examination did not reveal any focal deficits. SKIN: No rashes. no petechiae. - Labs CBC & Chem 7: 11/01/23 04:55 10/31/23 05:05 Labs: Microbiology - Last 24 Hours (Table) 10/31/23 11:13 Blood Culture - Preliminary Blood 10/29/23 22:30 Blood Culture - Preliminary Blood Assessment and Plan Assessment: Acute right pyelonephritis Sepsis with fever and leukocytosis secondary to above, improved Dehydration secondary to above, improved Right nonobstructive renal stone, evaluated by neurologist and felt no ureteral stone History of asthma Plan: Continue with Rocephin 2 g daily Follow-up urine culture urologist evaluated the patient Consult infectious disease team Labs and medication were reviewed.. Continue same treatment. Continue with symptomatic treatment. Resume home medication. Monitor labs and vitals. DVT and GI prophylaxis. Further recommendations as per clinical course of the patient DVT prophylaxis: Subcutaneous heparin GI Prophylaxis: Pepcid Prognosis is guarded
[2023-11-02 22:14] VITALS: RESP 18
[2023-11-03] MEDS: FAMOTIDINE 20 MG/2 ML VIAL IV SCH (08:12)
[2023-11-03] MEDS: HEPARIN SODIUM,PORCINE 5,000 UNIT/ML 1 ML VIAL SQ SCH (08:12)
[2023-11-03 08:49] VITALS: BP 98/62; PULSE 63; TEMP 98.2
--- NOTE | 2023-11-03 09:45 | P.PN ---
Subjective Progress Note Date: 11/01/23 Principal diagnosis: Reason for follow-up is right-sided pyelonephritis and bacteremia Patient is a 23-year-old female with a past medical history significant for asthma presented to the hospital with right flank pain initially diagnosed with a kidney stone subsequently with pyelonephritis and also have evidence of E. coli bacteremia. On today's evaluation that is 11/01/2023 patient did have resolution of her fever and is afebrile this morning patient is breathing comfortably on room air patient denies having any chest pain shortness of breath or cough leg pain has decreased in intensity no nausea vomiting and no diarrhea. Patient white count is down to 8.62 creatinine 0.7 blood culture with gram- negative ID sensitivities pending Objective - Vital Signs Vital signs: Vital Signs Temp 97.8 F 11/01/23 13:46 Pulse 86 11/01/23 13:46 Resp 18 11/01/23 13:46 BP 115/81 11/01/23 13:46 Pulse Ox 99 11/01/23 13:46 FiO2 Intake & Output 10/31/23 11/01/23 11/01/23 18:59 06:59 18:59 Other: Voiding Method Toilet Toilet # Voids 5 2 - Exam GENERAL DESCRIPTION: Young female up in bed in no distress RESPIRATORY SYSTEM: Unlabored breathing , decreased breath sounds at bases HEART: S1 S2 regular rate and rhythm , ABDOMEN: Soft , mild right flank tenderness EXTREMITIES: No edema feet - Labs CBC & Chem 7: 11/01/23 04:55 10/31/23 05:05 Labs: Abnormal Lab Results - Last 24 Hours (Table) 11/01/23 Range/Units 04:55 RBC 3.49 L (4.10-5.20) X 10*6/uL Hgb 10.1 L (12.0-15.0) g/dL Hct 30.2 L (37.2-46.3) % MPV 12.5 H (9.5-12.2) FL Eosinophils # 0.01 L (0.04-0.35) X 10*3/uL Microbiology - Last 24 Hours (Table) 10/29/23 22:45 Urine Culture - Final Urine,Voided 10/29/23 22:30 Blood Culture - Preliminary Blood Assessment and Plan (1) Leukocytosis Current Visit: Yes Status: Acute Code(s): D72.829 - ELEVATED WHITE BLOOD CELL COUNT, UNSPECIFIED SNOMED Code(s): 442490127 (2) Positive blood cultures Current Visit: Yes Status: Acute Code(s): R78.81 - BACTEREMIA SNOMED Code(s): 611105234 (3) Pyelonephritis Current Visit: Yes Status: Acute Code(s): N12 - TUBULO-INTERSTITIAL NEPHRITIS, NOT SPCF ACUTE OR CHRONIC SNOMED Code(s): 23971439 Plan: 1patient presented to hospital with sepsis in this patient who did have a fever tachycardia elevated white count source is right-sided pyelonephritis likely from enteric gram-negative pathogen 2-patient with an E. coli bacteremia source likely right-sided pyelonephritis 3patient to continue with Rocephin 2 g daily while waiting for the culture to finalize to determine at discharge antibiotics and monitor clinical course closely Dictation was produced using [employer] dictation software. please excuse any grammatical, word or spelling errors.
--- NOTE | 2023-11-03 09:47 | P.PN ---
Subjective Progress Note Date: 11/02/23 Principal diagnosis: Reason for follow-up is right-sided pyelonephritis and bacteremia Patient is a 23-year-old female with a past medical history significant for asthma presented to the hospital with right flank pain initially diagnosed with a kidney stone subsequently with pyelonephritis and also have evidence of E. coli bacteremia. On today's evaluation that is 11/02/2023 patient remains to be afebrile, patient is breathing comfortably on room air without need for supplemental oxygen patient denies having any chest pain shortness of breath or cough leg pain has decreased in intensity no nausea vomiting and no diarrhea. Patient is feeling better Patient white count is down to 8.62 creatinine 0.7 as of 11/01/2023 no lab draw was done today blood culture with gram-negative ID sensitivities pending Objective - Vital Signs Vital signs: Vital Signs Temp 98.1 F 11/02/23 06:48 Pulse 74 11/02/23 06:48 Resp 19 11/02/23 06:48 BP 128/81 11/02/23 06:48 Pulse Ox 98 11/02/23 06:48 FiO2 Intake & Output 11/01/23 11/02/23 11/02/23 18:59 06:59 18:59 Other: Voiding Method Toilet Toilet # Voids 5 6 # Bowel Movements 1 1 - Exam GENERAL DESCRIPTION: Young female up in bed in no distress RESPIRATORY SYSTEM: Unlabored breathing , decreased breath sounds at bases HEART: S1 S2 regular rate and rhythm , ABDOMEN: Soft , mild right flank tenderness EXTREMITIES: No edema feet - Labs CBC & Chem 7: 11/01/23 04:55 10/31/23 05:05 Labs: Microbiology - Last 24 Hours (Table) 10/31/23 11:13 Blood Culture - Preliminary Blood 10/29/23 22:30 Blood Culture - Preliminary Blood Assessment and Plan (1) Positive blood cultures Current Visit: Yes Status: Acute Code(s): R78.81 - BACTEREMIA SNOMED Code(s): 239467627 (2) Pyelonephritis Current Visit: Yes Status: Acute Code(s): N12 - TUBULO-INTERSTITIAL NEPHRITIS, NOT SPCF ACUTE OR CHRONIC SNOMED Code(s): 77717300 Plan: 1patient presented to hospital with sepsis in this patient who did have a fever tachycardia elevated white count source is right-sided pyelonephritis likely from enteric gram-negative pathogen 2-patient with an E. coli bacteremia source likely right-sided pyelonephritis 3patient to continue with Rocephin 2 g daily, we are still waiting for the blood culture to be finalized to determine her discharge antibiotics multiple questions concerns answered Dictation was produced using [employer] dictation software. please excuse any grammatical, word or spelling errors.
[2023-11-03 11:47] VITALS: BMI 22.1
[2023-11-03] MEDS: SODIUM CHLORIDE 0.9% 1,000 ML IV SCH (13:31)
--- NOTE | 2023-11-03 14:16 | P.PN ---
Subjective Progress Note Date: 11/03/23 Principal diagnosis: Reason for follow-up is right-sided pyelonephritis and bacteremia Patient is a 23-year-old female with a past medical history significant for asthma presented to the hospital with right flank pain initially diagnosed with a kidney stone subsequently with pyelonephritis and also have evidence of E. coli bacteremia. On today's evaluation that is 11/03/2023 the patient denies any fever or any chills, the patient breathing comfortably on room air no chest pain shortness of the cough no nausea vomiting no abdominal pain and no diarrhea the patient right flank pain has improved and urine symptoms has resolved. Patient did have a white count of 8.62 as of yesterday, blood culture finalized with an E. coli that is a sensitive pathogen Objective - Vital Signs Vital signs: Vital Signs Temp 98.2 F 11/03/23 06:56 Pulse 63 11/03/23 06:56 Resp 18 11/03/23 06:56 BP 98/62 11/03/23 06:56 Pulse Ox 95 11/03/23 06:56 FiO2 Intake & Output 11/02/23 11/03/23 11/03/23 18:59 06:59 18:59 Other: # Voids 3 2 - Exam GENERAL DESCRIPTION: Young female up in bed in no distress RESPIRATORY SYSTEM: Unlabored breathing , decreased breath sounds at bases HEART: S1 S2 regular rate and rhythm , ABDOMEN: Soft , mild right flank tenderness EXTREMITIES: No edema feet - Labs CBC & Chem 7: 11/01/23 04:55 10/31/23 05:05 Labs: Microbiology - Last 24 Hours (Table) 10/31/23 11:13 Blood Culture - Preliminary Blood 10/29/23 22:30 Blood Culture - Preliminary Blood 10/29/23 22:45 Blood Culture Gram Stain - Final Blood Blood Culture - Final Escherichia coli Assessment and Plan (1) Positive blood cultures Status: Acute Code(s): R78.81 - BACTEREMIA SNOMED Code(s): 545595053 (2) Pyelonephritis Status: Acute Code(s): N12 - TUBULO-INTERSTITIAL NEPHRITIS, NOT SPCF ACUTE OR CHRONIC SNOMED Code(s): 25339841 Plan: 1patient presented to hospital with sepsis in this patient who did have a fever tachycardia elevated white count source is right-sided pyelonephritis likely from enteric gram-negative pathogen 2-patient with an E. coli bacteremia source likely right-sided pyelonephritis 3patient has no clinical appointment on Rocephin urine culture finalized with an E. coli that is a sensitive pathogen we will finish therapy with oral Cipro prescription sent to the pharmacy Questions concern answered Dictation was produced using [employer] dictation software. please excuse any grammatical, word or spelling errors.
--- NOTE | 2023-11-03 22:05 | P.DS ---
Providers Date of admission: 10/30/23 09:30 Attending physician: Ash Munroe Consults: 10/30/23 12:39 Consult Physician Urgent Consulting Provider: Teo Rincon Consult Reason/Comments: left obstructing stone Do you want consulting provider notified?: Yes 10/31/23 14:29 Consult Physician Routine Consulting Provider: Analy James Consult Reason/Comments: bacteremia pyelone Do you want consulting provider notified?: Yes Primary care physician: Mary Ann Weiner Hospital Course: Diagnoses Acute right pyelonephritis Sepsis with fever and leukocytosis secondary to above, improved Dehydration secondary to above, improved Right nonobstructive renal stone, evaluated by urologist and felt no ureteral stone History of asthma Hospital course: Patient on medical floor. Sitting up in bed, continues to report left and right flank pain, worse on the right. She has a non obstructing stone. Urology evaluated the patient, felt she could pass the stone. Patient continues on IV fluids, and course of IV ceftriaxone. Does have E.Coli bacteremia and for this ID was consulted today. Complaining of achy dull back pain 7/10. Elevated White blood cell count has improved . Patient showed interval improvement in her symptoms significantly improved. Today she states her right flank pain is 1/10. No fever, she tolerates that well. Patient feels she can go home today. No other new complaints. Patient was cleared for discharge by infectious disease team and neurology team Patient will be discharged on 10 days of Cipro per ID team recommendation Problems and management plan were discussed with the patient and he verbalized understanding and acceptance Patient was found stable and can be discharged home in guarded prognosis however he needs follow-up as an outpatient. Patient was instructed to follow up with PCP Dr. Weiner within one week and patient agrees Patient was instructed to follow up with Dr. James from ID and from urology team in one week after discharge and she agrees Physical exam Gen: patient is a AAOx3, no distress CVS: S1-S2, RRR, no murmur Lungs: B/L CTA, no wheezing Abdomen: soft, no distention, no tenderness, positive bowel sounds Extremity: no leg edema or induration Time spent more than 35 minutes Patient Condition at Discharge: Stable Plan - Discharge Summary Discharge Rx Participant: No New Discharge Prescriptions: New Ciprofloxacin HCl [Cipro] 500 mg PO BID 10 Days #20 tab Acetaminophen Tab [Tylenol] 650 mg PO Q6HR PRN tab PRN Reason: Mild Pain Or Fever > 100.5 Continue desog-e.estradioL/e.estradioL [Azurette 28 Day Tablet] 1 tab PO DAILY Albuterol Sulfate [Proair Hfa] 1 - 2 puff INHALATION RT-QID PRN PRN Reason: Shortness Of Breath Tamsulosin [Flomax] 0.4 mg PO DAILY #7 cap Reslizumab [Cinqair] 1 dose IV Q28D HYDROcodone/APAP 7.5-325MG [[place]ryn 7.5-325] 1 tab PO Q4H PRN PRN Reason: Pain Budesonide/Formoterol Fumarate [Symbicort 160-4.5 Mcg Inhaler] 2 puff INHALATION RT-BID Discontinued Ibuprofen [Motrin] 600 mg PO Q6H PRN PRN Reason: Pain Or Fever > 100.5 metroNIDAZOLE 0.75% VAGINAL [Metrogel Vaginal] 1 applic VAGINAL DAILY Discharge Medication List Albuterol Sulfate [Proair Hfa] 1 - 2 puff INHALATION RT-QID PRN 11/16/18 [History] desog-e.estradioL/e.estradioL [Azurette 28 Day Tablet] 1 tab PO DAILY 11/16/18 [History] Tamsulosin [Flomax] 0.4 mg PO DAILY #7 cap 10/25/23 [Rx] HYDROcodone/APAP 7.5-325MG [Penryn 7.5-325] 1 tab PO Q4H PRN 10/30/23 [History] Reslizumab [Cinqair] 1 dose IV Q28D 10/30/23 [History] Budesonide/Formoterol Fumarate [Symbicort 160-4.5 Mcg Inhaler] 2 puff INHALATION RT-BID 10/31/23 [History] Acetaminophen Tab [Tylenol] 650 mg PO Q6HR PRN tab 11/03/23 [Rx] Ciprofloxacin HCl [Cipro] 500 mg PO BID 10 Days #20 tab 11/03/23 [Rx] Follow up Appointment(s)/Referral(s): Teo Rincon MD [STAFF PHYSICIAN] - 1 Week (Office will call you with your appointment.) Mary Ann Weiner MD [Primary Care Provider] - 1-2 days Analy James MD [STAFF PHYSICIAN] - 11/09/23 2:30 pm Patient Instructions/Handouts: Kidney Stones (DC) Activity/Diet/Wound Care/Special Instructions: heart healthy diet activity is restricted till you see your doctor Discharge Disposition: HOME SELF-CARE
== END 2023-11-03 13:55 | disposition home or self-care (01) | DRG 872 ==
LOC: EC 20:46 → 4SSUR 10-30 00:09 → OBSVTOIN 10-30 09:30
PROVIDERS: ADMIT Hospitalist; ATTEND Hospitalist
DX: A41.51 Sepsis due to Escherichia coli [E. coli] (principal); N10 Acute pyelonephritis; E87.1 Hypo-osmolality and hyponatremia; N20.0 Calculus of kidney; B96.20 Unspecified Escherichia coli [E. coli] as the cause of diseases classified elsewhere; E86.0 Dehydration; J45.909 Unspecified asthma, uncomplicated; E86.1 Hypovolemia; Z79.899 Other long term (current) drug therapy; Z79.51 Long term (current) use of inhaled steroids; Z28.310 Unvaccinated for COVID-19; Z88.1 Allergy status to other antibiotic agents
CPT/HCPCS: 36415; 74176; 76770; 80048; 80053; 81001; 81025; 83605; 83690; 84703; 85025; 87040; 87077; 87086; 87186; 96361; 96365; 96368; 96375; 99285